=== PATIENT | female | born 1955 | race Caucasian/White ===

== ENCOUNTER → 2019-04-04 | Outpatient (CLI) | payer OTHER ==
--- NOTE | 2019-04-04 08:48 | US ---
EXAMINATION TYPE: US carotid duplex BILAT DATE OF EXAM: 04/04/2019 COMPARISON: NONE CLINICAL HISTORY: I25.10 Coronary arterial sclerosis. EXAM MEASUREMENTS: RIGHT: Peak Systolic Velocity (PSV) cm/sec ----- Right CCA: 119.0 ----- Right ICA: 67.4 ----- Right ECA: 232.0 ICA/CCA ratio: 0.56 RIGHT: End Diastole cm/sec ----- Right CCA: 20.4 ----- Right ICA: 13.4 ----- Right ECA: 21.6 LEFT: Peak Systolic Velocity (PSV) cm/sec ----- Left CCA: 114.0 ----- Left ICA: 85.4 ----- Left ECA: 121. ICA/CCA ratio: 0.74 LEFT: End Diastole cm/sec ----- Left CCA: 22.2 ----- Left ICA: 26.4 ----- Left ECA: 11.6 VERTEBRALS (direction of flow): Right Vertebral: Antegrade Left Vertebral: Antegrade Rhythm: Normal There is mild peripheral plaque bilateral carotid bulb level. Velocity measurements and ratios in vis ualized portion of both internal carotid arteries is within normal limits. IMPRESSION: No hemodynamically significant stenosis involving either internal carotid artery. Criteria for Assigning % of Stenosis / Diameter reduction (Estimation based on the indirect measurements of the internal carotid artery velocities (ICA PSV). 1. Normal (no stenosis)=ICA PSV < 125 cm/s: ratio < 2.0: ICA EDV<40 cm/s. 2. Less than 50% stenosis=ICA PSV < 125 cm/s: ratio < 2.0: ICA EDV<40 cm/s. 3. 50 to 69% stenosis=ICA PSV of 125 to 230 cm/s: ration 2.0 ? 4.0: ICA EDV 40-100 cm/s. 4. Greater than 70% stenosis to near occlusion= ICA PSV > 230 cm/s: ratio > 4.0: ICA EDV > 100 cm/s. 5. Near occlusion= ICA PSV velocities may be low or undetectable: variable ratio and ICA EDV. 6. Total occlusion=unable to detect flow.
== END | disposition home or self-care (01) ==
LOC: RADUSWWP 08:01
PROVIDERS: ATTEND Family Medicine
DX: I25.10 Atherosclerotic heart disease of native coronary artery without angina pectoris (principal)
CPT/HCPCS: 93880

== ENCOUNTER → 2022-01-29 | Outpatient (CLI) | payer MEDICARE ==
--- NOTE | 2022-01-29 08:43 | US ---
EXAMINATION TYPE: US duplex aorta DATE OF EXAM: 01/29/2022 COMPARISON: NONE CLINICAL HISTORY: 66-year-old female I25.10 Atherosclerosis, Z13.6AAA screening. Epigastric pain, h/o ID and bypass surgery 17yrs ago, no family history of AAA TECHNIQUE: Multiple sonographic images of the abdominal aorta are obtained. FINDINGS: EXAM MEASUREMENTS: Abdominal Aorta: Proximal: 2.3 x 1.8cm Mid: 1.3 x 1.8cm Distal: 1.2 x 1.3cm Bifurcation: Rt = 0.7cm Lt = 0.6cm Wreath Maker notes: Appearance of atherosclerotic changes, otherwise normal appearing caliber IMPRESSION: Mild to moderate atherosclerotic irregularity throughout. No sonographic evidence for AAA.
--- NOTE | 2022-01-29 12:29 | ECHOF ---
Referral Reason:I25.10 MEASUREMENTS -------- HEIGHT: 149.9 cm WEIGHT: 61.2 kg BP: 148/70 RVIDd: 2.8 cm (< 3.3) IVSd: 1.0 cm (0.6 - 1.1) LVIDd: 3.1 cm (3.9 - 5.3) LVPWd: 0.9 cm (0.6 - 1.1) IVSs: 1.5 cm LVIDs: 2.1 cm LVPWs: 1.5 cm LA Diam: 3.2 cm (2.7 - 3.8) LAESV Index (A-L): 18.81 ml/m Ao Diam: 2.6 cm (2.0 - 3.7) AV Cusp: 1.8 cm (1.5 - 2.6) MV EXCURSION: 15.792 mm (> 18.000) MV EF SLOPE: 70 mm/s (70 - 150) EPSS: 0.4 cm MV E Gonzales: 1.03 m/s MV DecT: 279 ms MV A Gonzales: 0.90 m/s MV E/A Ratio: 1.14 RAP: 5.00 mmHg RVSP: 29.66 mmHg FINDINGS -------- Sinus rhythm. This was a technically good study. The left ventricular size is normal. Left ventricular wall thickness is normal. Overall left vent ricular systolic function is normal with, an EF between 60 - 65 %. The right ventricle is normal in size. Normal LA size by volume 22+/-6 ml/m2. The right atrium is normal in size. Aneurysmal Interatrial septum. The aortic valve is trileaflet, and appears structurally normal. No aortic stenosis or regurgitation. The mitral valve leaflets are mildly thickened. There is trace mitral regurgitation. Mild tricuspid regurgitation present. Right ventricular systolic pressure is normal at < 35 mmHg. Trace/mild (physiologic) pulmonic regurgitation. The aortic root size is normal. Normal inferior vena cava with normal inspiratory collapse consistent with estimated right atrial pre ssure of 5 mmHg. There is no pericardial effusion. CONCLUSIONS -------- 1. The left ventricular size is normal. 2. Left ventricular wall thickness is normal. 3. Overall left ventricular systolic function is normal with, an EF between 60 - 65 %. 4. Aneurysmal Interatrial septum. 5. The mitral valve leaflets are mildly thickened. 6. There is trace mitral regurgitation. 7. Mild tricuspid regurgitation present. 8. Trace/mild (physiologic) pulmonic regurgitation. 9. The aortic root size is normal. 10. There is no pericardial effusion. TIPPLE TENDER: Janell Larios RDCS
== END | disposition home or self-care (01) ==
LOC: RADUSWWP 06:48
PROVIDERS: ATTEND Family Medicine
DX: Z13.6 Encounter for screening for cardiovascular disorders (principal); I25.10 Atherosclerotic heart disease of native coronary artery without angina pectoris; I08.8 Other rheumatic multiple valve diseases
CPT/HCPCS: 93306; 93979

== ENCOUNTER 2023-01-25 15:20 | Inpatient (IN) | payer MEDICARE ==
[2023-01-25] MEDS ORDERED: NITROGLYCERIN OINT 1 INCH/GM PACKET TOPICAL STA (15:27)
[2023-01-25] MEDS ORDERED: HEPARIN SODIUM 1,000 UN/ML (10ML VL) IV PRN (15:27)
[2023-01-25] MEDS ORDERED: HEPARIN SODIUM 1,000 UN/ML (10ML VL) IV ONE (15:27)
[2023-01-25] MEDS ORDERED: HEPARIN SOD,PORK IN 0.45% NACL 25,000 UNIT in 0.45% NACL 1 250ML.BAG IV SCH (15:30)
--- NOTE | 2023-01-25 15:33 | ED ---
Chest Pain HPI - General Chief Complaint: Chest Pain Stated Complaint: Chest Pressure Time Seen by Provider: 01/25/23 15:20 Source: patient, RN notes reviewed Mode of arrival: EMS Limitations: no limitations - History of Present Illness Initial Comments: 67-year-old female with a history of hypertension also history of 6 way coronary artery bypass 17 years ago who presents by EMS from her doctor's office with complaints of chest pain is started 3 AM this morning. His been on and off but getting somewhat worse throughout the day she was given aspirin as well as nitroglycerin which brought the pain level down from a 5/10 with 3/10 she points were midsternal area there is no radiation no nausea vomiting or other symptoms at this time. MD Complaint: chest pain - Related Data Home Medications Medication Instructions Recorded Confirmed Aspirin EC [Ecotrin Low Dose] 81 mg PO DAILY 01/25/23 01/25/23 Metoprolol Succinate [Metoprolol 25 mg PO HS 01/25/23 01/25/23 Succinate ER] Pravastatin Sodium [Pravachol] 20 mg PO DAILY 01/25/23 01/25/23 amLODIPine [Norvasc] 5 mg PO DAILY 01/25/23 01/25/23 lisinopriL [Zestril] 5 mg PO DAILY 01/25/23 01/25/23 Allergies Allergy/AdvReac Type Severity Reaction Status Date / Time morphine AdvReac Nausea & Verified 01/25/23 17:44 Vomiting & Diarrhea Review of Systems ROS Statement: Those systems with pertinent positive or pertinent negative responses have been documented in the HPI. ROS Other: All systems not noted in ROS Statement are negative. EKG Findings - EKG Results: EKG: interpreted by ERMD (EKG interpreted by me sinus rhythm a 93. Interval 146 QRS ratio 89 QT/QTC 353/[address] configuration this is compared with EKG from the doctor's office earlier today) Past Medical History Past Medical History: GERD/Reflux, Hypertension History of Any Multi-Drug Resistant Organisms: None Reported Past Surgical History: Heart Catheterization Past Psychological History: No Psychological Hx Reported Smoking Status: Former smoker Past Alcohol Use History: None Reported Past Drug Use History: None Reported General Exam - General Exam Comments Initial Comments: This is a well-developed well-nourished awake alert oriented 4 female Limitations: no limitations General appearance: alert, in no apparent distress Head exam: Present: atraumatic, normocephalic, normal inspection Eye exam: Present: normal appearance, PERRL, EOMI. Absent: scleral icterus, conjunctival injection, periorbital swelling ENT exam: Present: normal exam, mucous membranes moist Neck exam: Present: normal inspection, full ROM, other (No stridor JVD or bruits). Absent: tenderness, meningismus, lymphadenopathy Respiratory exam: Present: normal lung sounds bilaterally. Absent: respiratory distress, wheezes, rales, rhonchi, stridor, chest wall tenderness Cardiovascular Exam: Present: regular rate, normal rhythm, normal heart sounds. Absent: systolic murmur, diastolic murmur, rubs, gallop, clicks GI/Abdominal exam: Present: soft, normal bowel sounds. Absent: distended, tenderness, guarding, rebound, rigid Extremities exam: Present: normal inspection, full ROM, normal capillary refill. Absent: tenderness, pedal edema, joint swelling, calf tenderness Back exam: Present: normal inspection Neurological exam: Present: alert, oriented X3, CN II-XII intact Psychiatric exam: Present: normal affect, normal mood Skin exam: Present: warm, dry, intact, normal color. Absent: rash Course Vital Signs 01/25/23 01/25/23 15:23 17:01 Temperature 97.7 F Pulse Rate 96 80 Respiratory 18 18 Rate Blood Pressure 160/81 172/87 O2 Sat by Pulse 95 97 Oximetry Chest Pain MDM - MDM I did discuss findings with the patient also with Dr. Basurto who did come the emergency department see the patient. Patient be admitted the presentation appears be consistent with unstable angina the chest painWas pt. sent in by a medical professional or institution (, PA, FURNITURE BUILDER, urgent care, hospital, or retirement...) When possible be specific @ -No Did you speak to anyone other than the patient for history (EMS, parent, family, police, friend...)? What history was obtained from this source @ -EMS personnel Did you review nursing and triage notes (agree or disagree)? Why? @ -I reviewed and agree with nursing and triage notes Were old charts reviewed (outside hosp., previous admission, EMS record, old EKG, old radiological studies, urgent care reports/EKG's, retirement records)? Report findings @ -From the office old charts were reviewed Differential Diagnosis (chest pain, altered mental status, abdominal pain women, abdominal pain men, vaginal bleeding, weakness, fever, dyspnea, syncope, headache, dizziness, GI bleed, back pain, seizure, CVA, palpatations, mental health, musculoskeletal)? @ -Test pain EKG interpreted by me (3pts min.). @ -As above X-rays interpreted by me (1pt min.). @ -As above CT interpreted by me (1pt min.). @ -None done U/S interpreted by me (1pt. min.). @ -None done What testing was considered but not performed or refused? (CT, X-rays, U/S, labs)? Why? @ -None What meds were considered but not given or refused? Why? @ -None Did you discuss the management of the patient with other professionals (professionals i.e. , PA, FURNITURE BUILDER, lab, RT, psych nurse, social services coordinator, gill tender, teacher, flight radio officer, upper caser)? Give summary @ -Dr. Basurto Was smoking cessation discussed for >3mins.? @ -No Was critical care preformed (if so, how long)? @ -31 minutes Were there social determinants of health that impacted care today? How? (Homelessness, low income, unemployed, alcoholism, drug addiction, transportation, low edu. Level, literacy, decrease access to med. care, intermediate, rehab)? @ -No Was there de-escalation of care discussed even if they declined (Discuss DNR or withdrawal of care, Hospice)? DNR status @ -No What co-morbidities impacted this encounter? (DM, HTN, Smoking, COPD, CAD, Cancer, CVA, ARF, Chemo, Hep., AIDS, mental health diagnosis, sleep apnea, morbid obesity)? @ -Coronary artery disease with bypass, hypertension, former smoker Was patient admitted / discharged? Hospital course, mention meds given and route, prescriptions, significant lab abnormalities, going to OR and other pertinent info. @ -Admitted to the hospital for further evaluation and cardiology consultation Undiagnosed new problem with uncertain prognosis? @ -No Drug Therapy requiring intensive monitoring for toxicity (Heparin, Nitro, Insulin, Cardizem)? @ -No Were any procedures done? @ -No Diagnosis/symptom? @ -Acute chest pain, unstable angina Acute, or Chronic, or Acute on Chronic? @ -2] Uncomplicated (without systemic symptoms) or Complicated (systemic symptoms)? @ -default Side effects of treatment? @ -No Exacerbation, Progression, or Severe Exacerbation? @ -No Poses a threat to life or bodily function? How? (Chest pain, [place], [place], pneumonia, PE, COPD, DKA, ARF, appy, cholecystitis, CVA, Diverticulitis, Homicidal, Suicidal, threat to staff... and all critical care pts) @ -Chest pain Critical Care Time Critical Care Time: Yes Total Critical Care Time: 31 Disposition Clinical Impression: Unstable angina pectoris, Acute chest pain Disposition: ADMITTED IP TO THIS HOSP Condition: Stable Referrals: Farhan Wyatt MD [Primary Care Provider] - 1-2 days Decision Date: 01/25/23 Decision Time: 19:00
[2023-01-25 15:47] LABS: Basophils % (A) 0 %; Eosinophils # (A) 0.2 k/uL (0-0.7); Eosinophils % (A) 1 %; Lymphocytes # (A) 1.6 k/uL (1.0-4.8); Lymphocytes % (A) 14 %; MCHC 34.8 g/dL (31.0-37.0); Mean Platelet Volume 7.8; Monocytes # (A) 0.6 k/uL (0-1.0); Monocytes % (A) 5 %; Neutrophils # (A) 9.3 k/uL (1.3-7.7); Neutrophils % (A) 79 %; Platelet Count 276 k/uL (150-450); RBC 4.83 m/uL (3.80-5.40); RDW 12.1 % (11.5-15.5); WBC 11.9 k/uL (3.8-10.6)
[2023-01-25 16:06] LABS: INR 0.9 (<1.2); Partial Thromboplastin Time 23.4 sec (22.0-30.0)
[2023-01-25 16:10] LABS: ALT 36 U/L (4-34); African American GFR (CKD) >90 (>60 ml/min/1.73 sqM); Albumin 4.6 g/dL (3.5-5.0); Anion Gap 11 mmol/L; Blood Urea Nitrogen 13 mg/dL (7-17); Calcium 9.3 mg/dL (8.4-10.2); Carbon Dioxide 23 mmol/L (22-30); Chloride 104 mmol/L (98-107); Glucose 133 mg/dL (74-99); Lipase 113 U/L (23-300); Non-African American GFR(CKD) >90 (>60 ml/min/1.73 sqM); Sodium 138 mmol/L (137-145); Total Bilirubin 0.8 mg/dL (0.2-1.3); Total Protein 8.5 g/dL (6.3-8.2)
[2023-01-25 16:14] LABS: AST 35 U/L (14-36); Alkaline Phosphatase 68 U/L (38-126); Magnesium 1.9 mg/dL (1.6-2.3); Potassium 4.2 mmol/L (3.5-5.1)
--- NOTE | 2023-01-25 17:06 | XR ---
EXAMINATION TYPE: XR chest 2V DATE OF EXAM: 01/25/2023 COMPARISON: None INDICATION: Chest pain TECHNIQUE: Frontal and lateral views of the chest are obtained. FINDINGS: The heart size is normal. The pulmonary vasculature is normal. The lungs are clear. IMPRESSION: 1. No acute pulmonary process.
[2023-01-25] MEDS ORDERED: HYDROmorphone 1 MG/ML 1 ML SYRINGE IVP STA (17:52)
[2023-01-25] MEDS ORDERED: ONDANSETRON 4 MG/2 ML VIAL IVP STA (18:13)
[2023-01-25] MEDS ORDERED: NITROGLYCERIN SL TABS 0.4 MG TAB SUBLINGUAL PRN (19:39)
[2023-01-25] MEDS: METOPROLOL SUCCINATE (ER) 25 MG TAB.ER.24H PO SCH (20:33)
[2023-01-25] MEDS: SODIUM CHLORIDE 0.9% 1,000 ML IV SCH (20:35)
[2023-01-25] MEDS ORDERED: METOCLOPRAMIDE 5 MG/ML 2 ML VIAL IVP STA (22:17)
[2023-01-25] MEDS ORDERED: ATORVASTATIN 80 MG TAB PO STA (23:45)
--- NOTE | 2023-01-25 23:49 | P.HPIM ---
History of Present Illness H&P Date: 01/25/23 The patient is a 67-year-old female with a PMH of CAD status post CABG 17 years ago, hypertension, and hyperlipidemia who presents to the emergency room with complaints of chest discomfort. The patient reports that she woke up this morning at around 3 AM with an aching substernal discomfort. She initially attributed the pain to heartburn, however it worsened throughout the day, increasing to a 7 out of 10 in intensity, nonpleuritic, nonradiating, with associated nausea and dizziness. At time of interview, she reports that her pain had resolved after receiving nitroglycerin. She denied experiencing shortness of breath or palpitations. Also denied fever, chills, cough. He denied lower extremity swelling or pain. EKG in the emergency room revealed sinus rhythm at [address]/T-wave changes noted as reviewed by me. Chest x-ray was unremarkable. Lab evaluation was remarkable for leukocytosis of 11.9, d-dimer 0.34, troponin less than 0.012, ALT 36, and proBNP 62. ED documentation reviewed and case discussed with ED provider. [] Review of systems: Pertinent positives and negatives as discussed in HPI, a complete review of systems was performed and all other systems are negative. Physical examination: Vital signs reviewed General: non toxic, no distress, appears at stated age, overweight Derm: no unusual rashes/lesions, warm Head: atraumatic, normocephalic, symmetric Eyes: EOMI, no lid lag, anicteric sclera, pupils equal round reactive to light ENT: Nose and ears atraumatic Neck: No cervical lymphadenopathy, trachea midline, supple Mouth: no lip lesion, mucus membranes moist Cardiovascular: S1S2 reg, no murmur, positive dorsalis pedis pulse bilateral, no edema Lungs: CTA bilateral, no rhonchi, no rales, no accessory muscle use Abdominal: soft, nontender to palpation, no guarding Ext: muscle strength 5 out of 5 in all 4 extremities grossly, no gross muscle atrophy, no contractures, Neuro: CN II-XI grossly intact, no gross focal neuro deficits Psych: Alert, oriented, appropriate affect Assessment: Unstable angina Leukocytosis Chronic conditions: Hypertension, hyperlipidemia Imaging: EKG in the emergency room revealed sinus rhythm at [address]/T-wave changes noted as reviewed by me. Chest x-ray was unremarkable. Data Review: Lab evaluation was remarkable for leukocytosis of 11.9, d-dimer 0.34, troponin less than 0.012, ALT 36, and proBNP 62. Plan: Continue with heparin infusion with PTT monitoring Continue with aspirin 325 by mouth daily and Lipitor 80 mg by mouth daily Nitropaste Cardiology consulted Cardiac monitoring Trend troponin Leukocytosis likely secondary to acute stressor with no signs of active i nfection at this time Continue with home medications: -Norvasc 5 mg by mouth daily -Lisinopril 5 mg by mouth daily -Toprol 25 mg by mouth daily at bedtime DVT prophylaxis: Heparin infusion The patient is admitted with an anticipated greater than 2 midnight stay for evaluation of unstable angina CODE STATUS: Full Code Discussed with: Patient Anticipated discharge place: Home Past Medical History Past Medical History: GERD/Reflux, Hypertension History of Any Multi-Drug Resistant Organisms: None Reported Past Surgical History: Coronary Bypass/CABG, Heart Catheterization Additional Past Surgical History / Comment(s): CABG X 6 Past Anesthesia/Blood Transfusion Reactions: No Reported Reaction Past Psychological History: No Psychological Hx Reported Smoking Status: Former smoker Past Alcohol Use History: None Reported Past Drug Use History: None Reported - Past Family History Mother Family Medical History: COPD Medications and Allergies Home Medications Medication Instructions Recorded Confirmed Type Aspirin EC [Ecotrin Low Dose] 81 mg PO DAILY 01/25/23 01/25/23 History Metoprolol Succinate [Metoprolol 25 mg PO HS 01/25/23 01/25/23 History Succinate ER] Pravastatin Sodium [Pravachol] 20 mg PO DAILY 01/25/23 01/25/23 History amLODIPine [Norvasc] 5 mg PO DAILY 01/25/23 01/25/23 History lisinopriL [Zestril] 5 mg PO DAILY 01/25/23 01/25/23 History Allergies Allergy/AdvReac Type Severity Reaction Status Date / Time morphine AdvReac Nausea & Verified 01/25/23 17:44 Vomiting & Diarrhea Physical Exam Vitals: Vital Signs Temp Pulse Pulse Resp BP BP Pulse Ox 01/25/23 20:54 85 16 01/25/23 20:32 98 F 85 16 147/74 96 01/25/23 20:02 98.2 F 92 18 143/78 93 L 01/25/23 19:59 98.2 F 93 18 143/78 94 L 01/25/23 17:01 80 18 172/87 97 01/25/23 15:23 97.7 F 96 18 160/81 95 Intake and Output 01/25/23 01/25/23 01/26/23 14:59 22:59 06:59 Intake Total 100 Balance 100 Intake: Oral 100 Other: Voiding Method Toilet Weight 63.957 kg Results CBC & Chem 7: 01/25/23 15:34 01/25/23 15:33 Labs: Abnormal Lab Results - Last 24 Hours (Table) 01/25/23 01/25/23 01/25/23 Range/Units 15:33 15:34 22:48 WBC 11.9 H (3.8-10.6) k/uL Neutrophils # 9.3 H (1.3-7.7) k/uL APTT 33.9 H (22.0-30.0) sec Glucose 133 H (74-99) mg/dL ALT 36 H (4-34) U/L Total Protein 8.5 H (6.3-8.2) g/dL Thrombosis Risk Factor Assmnt - Choose All That Apply Each Factor Represents 1 point: Obesity (BMI >25) Each Risk Factor Represents 2 Points: Age 61-74 years Thrombosis Risk Factor Assessment Total Risk Factor Score: 3 Thrombosis Risk Factor Assessment Level: Moderate Risk
[2023-01-26] MEDS: SODIUM CHLORIDE 0.9% 1,000 ML IV SCH ×2 (05:20→16:36)
[2023-01-26 08:07] LABS: HCT 42.2 % (34.0-46.0); HGB 14.3 gm/dL (11.4-16.0); MCH 31.2 pg (25.0-35.0); MCV 91.8 fL (80.0-100.0); Mean Platelet Volume 8.5; Platelet Count 295 k/uL (150-450); RBC 4.59 m/uL (3.80-5.40); RDW 12.3 % (11.5-15.5); WBC 13.6 k/uL (3.8-10.6)
[2023-01-26] MEDS ORDERED: ASPIRIN 325 MG TAB PO SCH (09:00)
[2023-01-26] MEDS ORDERED: PRAVASTATIN SODIUM 20 MG TAB PO SCH (09:00)
[2023-01-26] MEDS: amLODIPine 5 MG TAB PO SCH (09:26)
[2023-01-26] MEDS: ASPIRIN 81 MG PO SCH (09:26)
[2023-01-26] MEDS: lisinopriL 5 MG TAB PO SCH (09:26)
--- NOTE | 2023-01-26 09:42 | P.CRDCN ---
History of Present Illness Consult date: 01/26/23 History of present illness: HISTORY OF PRESENT ILLNESS: This is a 67-year-old female with a past medical history significant for coronary artery disease with previous CABG, hypertension, and hyperlipidemia. Patient follows in the office with Dr. Silverio. We have been asked to see the patient in consultation for chest pain. Patient examined at the bedside. She began having pressure in the middle of her chest yesterday. She initially thought it was heartburn as she had ate tacos which sometimes causes her to have heartburn. She states that she took Pepcid without any relief. She denied any radiation of the pain. Denied any shortness of breath. She states that she came to the ER for further evaluation. She received Dilaudid when she came to the ER which took away her pain. She states she's had no further episodes of chest pain since that time. Patient's vitals remain stable. * EKG reveals sinus mechanism with no signs of acute ischemia * Chest xray negative for acute process * Laboratory data: WBC 13.6. Hemoglobin 14.3. Platelet count 295. Sodium 138. Potassium 4.2. BUN 13. Creatinine 0.55. D-dimer 0.34. Troponin negative 3 * Current home cardiac medications include Pravachol 20 mg daily, lisinopril 5 mg daily, amlodipine 5 mg daily, aspirin 81 mg daily, and metoprolol succinate 25 mg at night * Most recent echocardiogram obtained in January 2022 revealed ejection fraction 60%, minimal mitral and tricuspid insufficiency without pulmonary hypertension. * Patient underwent Cardiolite stress testing in April 2022. Patient walked for 7 minutes. No ischemia noted. REVIEW OF SYSTEMS: At the time of my exam: CONSTITUTIONAL: Denies fever or chills. HEENT: Denies blurred vision, vision changes, or eye pain. Denies hemoptysis CARDIOVASCULAR: Denies chest pain. Denies orthopnea. Denies PND. Denies palpitations RESPIRATORY: Denies shortness of breath. GASTROINTESTINAL: Denies abdominal pain. Denies nausea or vomiting. HEMATOLOGIC: Denies bleeding disorders. GENITOURINARY: Denies any blood in urine. SKIN: Denies pruitis. Denies rash. PHYSICAL EXAM: VITAL SIGNS: Reviewed. GENERAL: Well-developed in no acute distress. HEENT: Head is normocephalic. Pupils are equal, round. Sclerae anicteric. Mucous membranes of the mouth are moist. Neck supple. No JVD or thyromegaly LUNGS: Respirations even and unlabored. Lungs essentially clear to auscultation bilaterally. HEART: Regular rate and rhythm. S1 and S2 heard. ABDOMEN: Soft. Nondistended. Nontender. EXTREMITIES: Normal range of motion. No clubbing or cyanosis. Peripheral pulses intact. No lower extremity edema NEUROLOGIC: Awake and alert. Oriented x 3. ASSESSMENT: Chest pain, troponins negative 3 Coronary artery disease with history of CABG Hypertension Hyperlipidemia History of GERD PLAN: An acute coronary event has been ruled out Discontinue IV heparin Resume home cardiac medications Obtain 2-D echo to assess cardiac structure and function Patient to undergo stress echocardiogram today If negative, she may be discharged home from a cardiac standpoint and follow-up with Dr. Silverio Nurse practitioner note has been reviewed by physician. Signing provider agrees with the documented findings, assessment, and plan of care. Past Medical History Past Medical History: GERD/Reflux, Hypertension History of Any Multi-Drug Resistant Organisms: None Reported Past Surgical History: Coronary Bypass/CABG, Heart Catheterization Additional Past Surgical History / Comment(s): CABG X 6 Past Anesthesia/Blood Transfusion Reactions: No Reported Reaction Past Psychological History: No Psychological Hx Reported Smoking Status: Former smoker Past Alcohol Use History: None Reported Past Drug Use History: None Reported - Past Family History Mother Family Medical History: COPD Medications and Allergies Home Medications Medication Instructions Recorded Confirmed Type Aspirin EC [Ecotrin Low Dose] 81 mg PO DAILY 01/25/23 01/25/23 History Metoprolol Succinate [Metoprolol 25 mg PO HS 01/25/23 01/25/23 History Succinate ER] Pravastatin Sodium [Pravachol] 20 mg PO DAILY 01/25/23 01/25/23 History amLODIPine [Norvasc] 5 mg PO DAILY 01/25/23 01/25/23 History lisinopriL [Zestril] 5 mg PO DAILY 01/25/23 01/25/23 History Allergies Allergy/AdvReac Type Severity Reaction Status Date / Time morphine AdvReac Nausea & Verified 01/25/23 17:44 Vomiting & Diarrhea Physical Exam Vitals: Vital Signs Temp Pulse Pulse Resp BP BP Pulse Ox 01/26/23 08:00 96 17 01/26/23 06:51 99.4 F 96 17 149/78 95 01/26/23 02:20 98.4 F 86 17 159/81 95 01/26/23 02:00 16 01/25/23 20:54 85 16 01/25/23 20:32 98 F 85 16 147/74 96 01/25/23 20:02 98.2 F 92 18 143/78 93 L 01/25/23 19:59 98.2 F 93 18 143/78 94 L 01/25/23 17:01 80 18 172/87 97 01/25/23 15:23 97.7 F 96 18 160/81 95 Intake and Output 01/25/23 01/26/23 01/26/23 22:59 06:59 14:59 Intake Total 100 114.551 Balance 100 114.551 Intake: Intake, IV Titration 114.551 Amount Heparin Sod,Pork in 0.45% 114.551 NaCl 25,000 unit In 0.45 % NaCl 1 250ml.bag @ 12 UNITS/KG/HR 7.675 mls/hr IV .Q24H [facility] Rx#: [id number] Oral 100 Other: Voiding Method Toilet Toilet Toilet # Voids 2 Weight 63.957 kg Results 01/26/23 04:14 01/25/23 15:33 Cardiac Enzymes 01/25/23 01/25/23 01/25/23 Range/Units 15:33 15:33 20:09 AST 35 (14-36) U/L Troponin I <0.012 <0.012 (0.000-0.034) ng/mL 01/25/23 Range/Units 22:48 AST (14-36) U/L Troponin I <0.012 (0.000-0.034) ng/mL Coagulation 01/25/23 01/25/23 01/26/23 Range/Units 15:34 22:48 04:18 PT 10.0 (9.0-12.0) sec APTT 23.4 33.9 H 65.8 H (22.0-30.0) sec CBC 01/25/23 01/26/23 Range/Units 15:34 04:14 WBC 11.9 H 13.6 H (3.8-10.6) k/uL RBC 4.83 4.59 (3.80-5.40) m/uL Hgb 15.0 14.3 (11.4-16.0) gm/dL Hct 43.0 42.2 (34.0-46.0) % Plt Count 276 295 (150-450) k/uL Comprehensive Metabolic Panel 01/25/23 Range/Units 15:33 Sodium 138 (137-145) mmol/L Potassium 4.2 (3.5-5.1) mmol/L Chloride 104 (98-107) mmol/L Carbon Dioxide 23 (22-30) mmol/L BUN 13 (7-17) mg/dL Creatinine 0.55 (0.52-1.04) mg/dL Glucose 133 H (74-99) mg/dL Calcium 9.3 (8.4-10.2) mg/dL AST 35 (14-36) U/L ALT 36 H (4-34) U/L Alkaline Phosphatase 68 (38-126) U/L Total Protein 8.5 H (6.3-8.2) g/dL Albumin 4.6 (3.5-5.0) g/dL Current Medications Generic Name Dose Route Start Last Admin Trade Name Freq PRN Reason Stop Dose Admin Amlodipine Besylate 5 mg 01/26/23 09:00 01/26/23 09:26 Amlodipine 5 Mg Tab PO 5 mg DAILY HELADIO Administration Aspirin 81 mg 01/26/23 09:00 01/26/23 09:26 Aspirin 81 Mg PO 81 mg DAILY HELADIO Administration Heparin Sodium (Porcine) 0 unit 01/25/23 15:27 01/25/23 23:45 Heparin Sodium 1,000 Un/Ml (10ml Vl) IV 3,197.85 unit Q6HR PRN Administration Low PTT Protocol Sodium Chloride 1,000 mls @ 100 mls/hr 01/25/23 19:45 01/26/23 05:20 Saline 0.9% IV 100 mls/hr .Q10H HELADIO Administration Lisinopril 5 mg 01/26/23 09:00 01/26/23 09:26 Lisinopril 5 Mg Tab PO 5 mg DAILY HELADIO Administration Metoprolol Succinate 25 mg 01/25/23 21:00 01/25/23 20:33 Metoprolol Succinate (Er) 25 Mg Tab.Er.24h PO 25 mg HS HELADIO Administration Nitroglycerin 0.4 mg 01/25/23 19:39 Nitroglycerin Sl Tabs 0.4 Mg Tab SUBLINGUAL Q5M PRN Chest Pain Pravastatin Sodium 20 mg 01/26/23 21:00 Pravastatin Sodium 20 Mg Tab PO HS [facility] Intake and Output 01/25/23 01/26/23 01/26/23 22:59 06:59 14:59 Intake Total 100 114.551 Balance 100 114.551 Intake: Intake, IV Titration 114.551 Amount Heparin Sod,Pork in 0.45% 114.551 NaCl 25,000 unit In 0.45 % NaCl 1 250ml.bag @ 12 UNITS/KG/HR 7.675 mls/hr IV .Q24H [facility] Rx#: [id number] Oral 100 Other: Voiding Method Toilet Toilet Toilet # Voids 2 Weight 63.957 kg 01/26/23 04:14 01/25/23 15:33
[2023-01-26 12:44] LABS: Chol/HDL Ratio 3.47 Ratio; LDL Cholesterol,Calculated 89.1 mg/dL (0.0-131.0)
[2023-01-26] MEDS: ACETAMINOPHEN TAB 325 MG TAB PO PRN (14:11)
[2023-01-26] MEDS ORDERED: MAG HYDROX/AL HYDROX/SIMETH 30 ML, HYOSCYAMINE ELIXIR 10 ML, LIDOCAINE VISCOUS 2% 10 ML PO ONE ×3 (15:31)
--- NOTE | 2023-01-26 16:06 | XR ---
EXAMINATION TYPE: XR chest 1V portable DATE OF EXAM: 01/26/2023 HISTORY: Shortness of breath. COMPARISON: 01/25/2023 TECHNIQUE: Single view of the chest is submitted. FINDINGS: Demonstrated are scattered senescent parenchymal change. There is no evidence for focal infiltrate. The heart is stable. Hilar and mediastinal structures are within normal limits. Degenerative changes are seen of the dorsal spine. IMPRESSION: 1. Chronic changes without evidence for acute pulmonary disease.
--- NOTE | 2023-01-26 16:50 | P.PN ---
Subjective Progress Note Date: 01/26/23 (Patient seen at 0815 AM) Patient is a 67-year-old female with a past medical history of coronary artery disease status post reported 6 vessel CABG 17 years ago, hypertension, and dyslipidemia who presented to the ER with complaints of chest pain. In the emergency department she underwent an extensive evaluation. Initial EKG showed no significant ST-T wave changes. Chest x-ray was unremarkable. Laboratory analysis was remarkable for a leukocytosis of 19.9, d-dimer 0.34 and troponin of less than 0.012. She was given an aspirin, nitroglycerin, and a heparin drip was started. She was admitted to cardiac observation. She was seen by cardiology the next morning and a stress echo was ordered. Patient seen and examined at bedside. Currently chest pain-free. She states that her chest pain awoke her from sleep and she describes it as a burning/gnawing sensation in her lower chest/upper abdomen. It was not associated with diaphoresis or shortness of breath. She took a Pepcid and when it did not resolve she proceeded to the hospital. She reports that she just recently started seeing Dr. Silverio again, she had not seen a wheel braider for 6 years before that. Vital signs reviewed General: nontoxic, no distress, appears at stated age Cardiovascular: S1S2 reg, no murmur, positive posterior tibial pulse bilateral, Lungs: CTA bilateral, no rhonchi, no rales , no accessory muscle use Abdominal: soft, nontender to palpation, no guarding, no appreciable organomegaly Ext: no gross muscle atrophy, no edema, no contractures Neuro: CN II-XI grossly intact, no focal neuro deficits Psych: Alert, oriented, appropriate affect Assessment: Chest pain-cardiac versus GI etiology Leukocytosis History of coronary artery disease status post coronary artery bypass grafting Hypertension Dyslipidemia Data Review: Vital signs reviewed from this morning and temperature 99.4, O2 sat 95% on room air, pulse 96, respirations 17, blood pressure 149/78 White blood cell count 13.6, PTT 33.9, second and third troponin less than 0.012, cholesterol profile reviewed with HDL 47, LDL 89, and total cholesterol 164 Plan: -Case discussed with cardiology nurse practitioner. Patient will undergo stress echo. -CMP added to blood work in lab due to increasing leukocytosis -Patient began having some bilateral rib pain after her stress echo. EKG was obtained and reviewed by myself which revealed sinus rhythm with no significant ST-T wave changes. Repeat chest x-ray showed no acute process. Repeat stat CBC and CMP currently pending. Gallbladder ultrasound ordered. -We will try GI cocktail for pain relief -Continue with aspirin 81 mg daily, Pravachol 20 mg at night, metoprolol 25 mg at night, and lisinopril 5 mg daily -Norvasc 5 mg daily -Added Dilaudid 1 mg every 4 hours as needed for pain and tramadol 50 mg 4 times daily as needed for moderate pain. This dictation was prepared using [employer] voice recognition software. Though every attempt is made to correct errors during during dictation some may still exist. Objective - Vital Signs Vital signs: Vital Signs Temp 98.9 F 01/26/23 13:27 Pulse 109 H 01/26/23 15:10 Resp 18 01/26/23 15:10 BP 162/76 01/26/23 15:10 Pulse Ox 97 01/26/23 15:10 FiO2 Intake & Output 01/25/23 01/26/23 01/26/23 18:59 06:59 18:59 Intake Total 214.551 Balance 214.551 Weight 63.957 kg 63.957 kg Intake: Intake, IV Titration 114.551 Amount Heparin Sod,Pork in 0.45% 114.551 NaCl 25,000 unit In 0.45 % NaCl 1 250ml.bag @ 12 UNITS/KG/HR 7.675 mls/hr IV .Q24H [facility] Rx#: [id number] Oral 100 Other: Voiding Method Toilet Toilet # Voids 2 3 - Labs CBC & Chem 7: 01/26/23 04:14 01/25/23 15:33 Labs: Abnormal Lab Results - Last 24 Hours (Table) 01/25/23 01/26/23 01/26/23 Range/Units 22:48 04:14 04:18 WBC 13.6 H (3.8-10.6) k/uL APTT 33.9 H 65.8 H (22.0-30.0) sec
[2023-01-26 16:56] LABS: HCT 43.3 % (34.0-46.0); HGB 14.9 gm/dL (11.4-16.0); MCH 31.1 pg (25.0-35.0); MCHC 34.3 g/dL (31.0-37.0); MCV 90.6 fL (80.0-100.0); Mean Platelet Volume 7.4; Platelet Count 280 k/uL (150-450); RBC 4.77 m/uL (3.80-5.40); RDW 12.3 % (11.5-15.5); WBC 15.2 k/uL (3.8-10.6)
[2023-01-26 17:10] LABS: ALT 34 U/L (4-34); AST 29 U/L (14-36); African American GFR (CKD) >90 (>60 ml/min/1.73 sqM); Albumin 4.7 g/dL (3.5-5.0); Albumin/Globulin Ratio 1.3; Alkaline Phosphatase 75 U/L (38-126); Anion Gap 10 mmol/L; Blood Urea Nitrogen 12 mg/dL (7-17); Calcium 9.3 mg/dL (8.4-10.2); Carbon Dioxide 27 mmol/L (22-30); Chloride 102 mmol/L (98-107); Globulin 3.7 g/dL; Glucose 136 mg/dL (74-99); Non-African American GFR(CKD) >90 (>60 ml/min/1.73 sqM); Potassium 4.3 mmol/L (3.5-5.1); Sodium 139 mmol/L (137-145); Total Bilirubin 1.2 mg/dL (0.2-1.3); Total Protein 8.4 g/dL (6.3-8.2)
--- NOTE | 2023-01-26 17:38 | CA ---
Transthoracic Echo Report Name: Pavithra Polanco Age: 67 Gender: F : 1955 Exam Date: 01/26/2023 11:15 Exam Location: [facility] Ht (in): 59 Wt (lb): 141 Ordering Physician: Sunni Heck Attending/Referring Phys: [id number], Maria R Environmental Resource Specialist Bijal Carias RDCS Procedure CPT: Indications: LV function, chest pain Cardiac Hx: Technical Quality: Fair Contrast 1: Total Dose (mL): Contrast 2: Total Dose (mL): MEASUREMENTS (Male / Female) Normal Values 2D ECHO LV Diastolic Diameter PLAX 3.2 cm 4.2 - 5.9 / 3.9 - 5.3 cm LV Systolic Diameter PLAX 2.2 cm IVS Diastolic Thickness 1.0 cm 0.6 - 1.0 / 0.6 - 0.9 cm LVPW Diastolic Thickness 1.1 cm 0.6 - 1.0 / 0.6 - 0.9 cm LV Relative Wall Thickness 0.7 RV Internal Dim ED PLAX 3.2 cm LA Volume 31.9 cm??? 18 - 58 / 22 - 52 cm??? M-MODE Aortic Root Diameter MM 3.0 cm LA Systolic Diameter MM 3.2 cm LA Ao Ratio MM 1.1 AV Cusp Separation MM 2.2 cm DOPPLER AV Peak Velocity 137.5 cm/s AV Peak Gradient 7.6 mmHg AV Mean Velocity 99.4 cm/s AV Mean Gradient 4.4 mmHg AV Velocity Time Integral 24.6 cm LVOT Peak Velocity 109.7 cm/s LVOT Peak Gradient 4.8 mmHg LVOT Velocity Time Integral 21.2 cm MV Area PHT 6.0 cm??? Mitral E Point Velocity 92.2 cm/s Mitral A Point Velocity 97.1 cm/s Mitral E to A Ratio 0.9 MV Deceleration Time 127.4 ms MV E' Velocity 7.8 cm/s Mitral E to MV E' Ratio 11.8 TR Peak Velocity 287.2 cm/s TR Peak Gradient 33.0 mmHg Right Ventricular Systolic Press 36.1 mmHg FINDINGS Left Ventricle Mildly increased left ventricular wall thickness. Left ventricular cavity size normal. Normal left ventricular systolic function with no obvious regional wall motion abnormalities. Left ventricular ejection fraction is estimated at 50-55 %. Right Ventricle Normal right ventricular size and function. Mild pulmonary hypertension. Right Atrium Normal right atrial size. Left Atrium Normal left atrial size. Interatrial septal aneurysm. Mitral Valve Structurally normal mitral valve. Mild mitral regurgitation. Aortic Valve Trileaflet aortic valve. No aortic valve stenosis or regurgitation. Tricuspid Valve Structurally normal tricuspid valve. Mild tricuspid regurgitation. Pulmonic Valve Structurally normal pulmonic valve. Pericardium No pericardial effusion. Aorta Normal size aortic root and proximal ascending aorta. CONCLUSIONS Normal LV systolic function Patient tachycardic Previewed by: Dr. Andres Rivera MD (Electronically Signed) Final Date: 26 January 2023 17:37
[2023-01-26] MEDS ORDERED: SODIUM CHLORIDE 0.9% 1,000 ML IV ONE (18:04)
--- NOTE | 2023-01-26 18:27 | US ---
EXAMINATION TYPE: US gallbladder DATE OF EXAM: 01/26/2023 COMPARISON: NONE CLINICAL HISTORY: abdominal pain. epigastric pain w elevated wbc TECHNIQUE: Multiple sonographic images of the right upper quadrant are obtained. FINDINGS: EXAM MEASUREMENTS: Liver Length: 14.4 cm Gallbladder Wall: 0.7 cm CBD: 0.8 cm Right Kidney: 10.0 x 4.7 x 3.9 cm CHECKOUT OPERATOR NOTES: Pancreas: No gross abnormality. Liver: Heterogeneous appearing. Hypoechoic area seen adjacent to GB measuring 3.4 x 1.4 x 1.7cm. Gallbladder: Thickened wall, gallstones seen Evidence for sonographic Foreman's sign: No CBD: wnl Right Kidney: wnl IMPRESSION: 1. Hepatic steatosis. 2. Nondistended gallbladder with thickened wall appearance. This can be confirmed with CT subsequent CT imaging ordered. Multiple shadowing gallstones are present.
--- NOTE | 2023-01-26 18:36 | CA ---
Stress Echo Report Pavithra Polanco Age: 67 Gender: F : 1955 Exam Date: 01/26/2023 10:59 Exam Location: [facility] Ht (in): 59 Wt (lb): 141 Ordering Physician: Sunni Heck Referring Physician: [id number] R Hospital Technician: NOÉ Technologist Procedure CPT: Indication: CP ICD-9 Codes: Rhythm: Patient History: CHEST PAIN, ANGINA, HTN, ELEVATED CHOLESTEROL LEVELS, PRIOR SMOKER QUIT 17 YEARS AGO, PRIOR CARDIAC CATH, PRIOR CABG Cardiac Medications: Medications in past 24 hours: Contrast: Stress Results Protocol: Navjot Total dose(mL): Exercise Duration (min:sec): 6:[address] Depression (mm): Angina Score: Thomas Score: METS: 8.1 Resting HR: 105 Resting BP: 153 / 61 Peak HR: 150 Peak BP: 152 / 57 Max Predicted HR: 153 98 % Max Predicted HR Target HR: 130 Double Product: [id number] Stress Summary: BP Response: Reason for Termination: MAX EXERTION/TARGET HR Cardiac Symptoms: NO SYMPTOMS ECG Analysis Resting ECG: Stress ECG: Arrhythmia: Echo Analysis Resting Echo: Peak Echo Analysis: MEASUREMENTS (Male/Female) Normal Values CONCLUSIONS Baseline heart rate 91 beats a minute, Baseline blood pressure 153/61 mmHg Baseline 12-lead EKG shows sinus mechanism with ST depression inferolaterally, greater than 1 mm Patient exercised on a Navjot protocol for 6 minutes 45 seconds achieving a peak heart rate of 150 beats a minute. Normal blood pressure response There were no new ECG changes noted Occasional PVCs noted Baseline 2-D echo images showed normal LV size and systolic function without any clear-cut wall motion abnormalities At peak exercise there was augmentation overall LV contractility with a very subtle inferior basal and inferior septal hypokinesis that seemed to improve on the recovery images Impression Abnormal ECG at baseline precluding further interpretation Possible mild inferobasal/inferoseptal hypokinesis/ischemia Dr. Andres Rivera MD (Electronically Signed) Final Date: 26 January 2023 18:36
[2023-01-26] MEDS: traMADol 50 MG TAB PO PRN (18:40)
--- NOTE | 2023-01-26 18:56 | CT ---
EXAMINATION TYPE: CT abdomen pelvis w con CT DLP: 578.0 mGycm, Automated exposure control for dose reduction was used. DATE OF EXAM: 01/26/2023 6:39 PM COMPARISON: Ultrasound same day. CLINICAL INDICATION:Female, 67 years old with history of abdominal pain w/ concerns for mesenteric is chemia; pain. concern for mesenteric ischemia. TECHNIQUE: Axial CT of the abdomen and pelvis. Sagittal and coronal reformats were created on a [employer] workstation. Contrast used:100ML mL of Isovue 300 with IV Contrast, Oral contrast used: without Oral Contrast FINDINGS: LOWER CHEST: Unremarkable ABDOMEN LIVER: Diffuse low-attenuation to the parenchyma. GALLBLADDER AND BILE DUCTS: Mild gallbladder wall thickening. Mild hyperemia of the gallbladder mucos a. PANCREAS: Unremarkable. SPLEEN: Unremarkable. ADRENAL GLANDS: Unremarkable. KIDNEYS AND URETERS: No evidence of hydronephrosis or renal calculus. The ureters are unremarkable. PELVIS BLADDER: Unremarkable REPRODUCTIVE: Unremarkable. ABDOMEN & PELVIS STOMACH AND BOWEL: No evidence of bowel obstruction. No evidence for bowel wall thickening. There is scattered colonic diverticula present. Appendix is normal. PERITONEUM/RETROPERITONEUM: No evidence of pneumoperitoneum or free fluid. VASCULATURE: Severe atherosclerotic calcifications are present throughout the abdominal aorta and its branches. No evidence of aortic aneurysm. Visualized vascular structures are patent within the limit ations of this exam. MUSCULOSKELETAL: No acute osseous abnormalities, scoliosis changes of the spine levoscoliosis apex L4 . LYMPH NODES: No gross evidence for lymphadenopathy. SOFT TISSUE/ABDOMINAL WALL: Unremarkable IMPRESSION: 1. No finding to suggest mesenteric ischemia. 2. Mild gallbladder wall thickening with hyperemic mucosa, the gallbladder is nondistended and could contribute to wall thickening appearance. Correlate for chronic cholecystitis with HIDA scan. 3. Hepatic steatosis.
[2023-01-26] MEDS: METOPROLOL SUCCINATE (ER) 25 MG TAB.ER.24H PO SCH (21:49)
[2023-01-26] MEDS: PRAVASTATIN SODIUM 20 MG TAB PO SCH (21:49)
[2023-01-27 00:33] LABS: African American GFR (CKD) 98.4 (60.0-200.0); Albumin 4.4 g/dL (3.8-4.9); Albumin/Globulin Ratio 1.32 (1.60-3.17); Anion Gap 20.2 mmol/L (10.00-18.00); BUN/Creat Ratio 15.16 Ratio (12.00-20.00); Blood Urea Nitrogen 11.1 mg/dL (9.0-27.0); Calcium 9.1 mg/dL (8.7-10.3); Carbon Dioxide 18.3 mmol/L (20.0-27.5); Globulin 3.3 g/dL (1.6-3.3); Non-African American GFR(CKD) 84.9 (60.0-200.0); Potassium 4.1 mmol/L (3.5-5.5); Total Bilirubin 0.6 mg/dL (0.30-1.20); Total Protein 7.7 g/dL (6.2-8.2)
[2023-01-27] MEDS: SODIUM CHLORIDE 0.9% 1,000 ML IV SCH ×3 (01:15→17:20)
[2023-01-27] MEDS: amLODIPine 5 MG TAB PO SCH (09:21)
[2023-01-27] MEDS: ASPIRIN 81 MG PO SCH (09:21)
[2023-01-27] MEDS: lisinopriL 5 MG TAB PO SCH (09:21)
[2023-01-27] MEDS: ISOSORBIDE MONONITRATE ER 30 MG TAB.ER.24H PO SCH (09:21)
[2023-01-27 09:52] LABS: ALT 28 U/L (4-34); AST 26 U/L (14-36); African American GFR (CKD) >90 (>60 ml/min/1.73 sqM); Albumin 4.1 g/dL (3.5-5.0); Albumin/Globulin Ratio 1.2; Alkaline Phosphatase 70 U/L (38-126); Anion Gap 11 mmol/L; Blood Urea Nitrogen 10 mg/dL (7-17); Calcium 8.3 mg/dL (8.4-10.2); Carbon Dioxide 21 mmol/L (22-30); Chloride 106 mmol/L (98-107); Globulin 3.5 g/dL; Glucose 126 mg/dL (74-99); Non-African American GFR(CKD) >90 (>60 ml/min/1.73 sqM); Sodium 138 mmol/L (137-145); Total Bilirubin 1.4 mg/dL (0.2-1.3); Total Protein 7.6 g/dL (6.3-8.2)
[2023-01-27 09:54] LABS: HCT 41.2 % (34.0-46.0); HGB 14.6 gm/dL (11.4-16.0); MCH 31.8 pg (25.0-35.0); MCHC 35.4 g/dL (31.0-37.0); MCV 89.8 fL (80.0-100.0); Mean Platelet Volume 8.2; Platelet Count 287 k/uL (150-450); RBC 4.59 m/uL (3.80-5.40); RDW 12.6 % (11.5-15.5); WBC 17.8 k/uL (3.8-10.6)
--- NOTE | 2023-01-27 10:04 | P.PN ---
Progress Note - Text Patient's symptoms are consistent with a GI etiology She has known coronary artery disease, multivessel Status post coronary artery bypass grafting The abnormality on the stress test images is very subtle. She is a very subtle hypokinesis in the inferior wall. At baseline the inferior wall is very mildly hypokinetic I would recommend workup of her GI condition and medical treatment for coronary artery disease
--- NOTE | 2023-01-27 11:39 | P.PN ---
Subjective Progress Note Date: 01/27/23 HISTORY OF PRESENT ILLNESS: This is a 67-year-old female with a past medical history significant for coronary artery disease with previous CABG, hypertension, and hyperlipidemia. Patient follows in the office with Dr. Silverio. We have been asked to see the patient in consultation for chest pain. Patient examined at the bedside. She began having pressure in the middle of her chest yesterday. She initially thought it was heartburn as she had ate tacos which sometimes causes her to have heartburn. She states that she took Pepcid without any relief. She denied any radiation of the pain. Denied any shortness of breath. She states that she came to the ER for further evaluation. She received Dilaudid when she came to the ER which took away her pain. She states she's had no further episodes of chest pain since that time. Patient's vitals remain stable. * EKG reveals sinus mechanism with no signs of acute ischemia * Chest xray negative for acute process * Laboratory data: WBC 13.6. Hemoglobin 14.3. Platelet count 295. Sodium 138. Potassium 4.2. BUN 13. Creatinine 0.55. D-dimer 0.34. Troponin negative 3 * Current home cardiac medications include Pravachol 20 mg daily, lisinopril 5 mg daily, amlodipine 5 mg daily, aspirin 81 mg daily, and metoprolol succinate 25 mg at night * Most recent echocardiogram obtained in January 2022 revealed ejection fraction 60%, minimal mitral and tricuspid insufficiency without pulmonary hypertension. * Patient underwent Cardiolite stress testing in April 2022. Patient walked for 7 minutes. No ischemia noted. 01/27/2023 Patient examined this morning at the bedside. Patient denies chest pain or pressure. Denies SOB. Vital signs are stable. Echocardiogram completed revealing ejection fraction 50-55%. Stress echocardiogram revealing possible mild inferior basal inferior septal hypokinesis. Discussed stress test with Dr. Rivera this morning and also Dr. Silverio. Patient's abnormality on the stress t est is very subtle hypokinesis of the inferior wall. At baseline inferior wall is very mildly hypokinetic. This is likely secondary to her history of CABG. PHYSICAL EXAM: VITAL SIGNS: Reviewed. GENERAL: Well-developed in no acute distress. HEENT: Head is normocephalic. Pupils are equal, round. Sclerae anicteric. Mucous membranes of the mouth are moist. Neck supple. No JVD or thyromegaly LUNGS: Respirations even and unlabored. Lungs essentially clear to auscultation bilaterally. HEART: Regular rate and rhythm. S1 and S2 heard. ABDOMEN: Soft. Nondistended. Nontender. EXTREMITIES: Normal range of motion. No clubbing or cyanosis. Peripheral pulses intact. No lower extremity edema NEUROLOGIC: Awake and alert. Oriented x 3. ASSESSMENT: Chest pain, troponins negative 3 Coronary artery disease with history of CABG Hypertension Hyperlipidemia History of GERD PLAN: Continue current cardiac medications Continue medical management in regards to patients stress test Continued workup of GI symptoms recommended Stable from a cardiac standpoint We will sign off. Please reconsult if needed. Nurse practitioner note has been reviewed by physician. Signing provider agrees with the documented findings, assessment, and plan of care. Objective - Vital Signs Vital signs: Vital Signs Temp 99.5 F 01/27/23 07:00 Pulse 86 01/27/23 07:00 Resp 16 01/27/23 07:00 BP 138/72 01/27/23 07:00 Pulse Ox 98 01/27/23 07:52 FiO2 21 01/26/23 09:00 Intake & Output 01/26/23 01/27/23 01/27/23 18:59 06:59 18:59 Other: Voiding Method Toilet Toilet # Voids 3 2 - Labs CBC & Chem 7: 01/27/23 08:58 01/27/23 08:58 Labs: Abnormal Lab Results - Last 24 Hours (Table) 01/26/23 01/26/23 01/26/23 Range/Units 08:04 16:35 16:35 WBC 15.2 H (3.8-10.6) k/uL Carbon Dioxide 18.3 L (20.0-27.5) mmol/L Anion Gap 20.20 H (10.00-18.00) mmol/L Glucose 128 H 136 H (70-110) mg/dL Calcium (8.4-10.2) mg/dL Total Bilirubin (0.2-1.3) mg/dL Total Protein 8.4 H (6.3-8.2) g/dL Albumin/Globulin Ratio 1.32 L (1.60-3.17) g/dL 01/27/23 01/27/23 Range/Units 08:58 08:58 WBC 17.8 H (3.8-10.6) k/uL Carbon Dioxide 21 L (20.0-27.5) mmol/L Anion Gap (10.00-18.00) mmol/L Glucose 126 H (70-110) mg/dL Calcium 8.3 L (8.4-10.2) mg/dL Total Bilirubin 1.4 H (0.2-1.3) mg/dL Total Protein (6.3-8.2) g/dL Albumin/Globulin Ratio (1.60-3.17) g/dL
--- NOTE | 2023-01-27 13:45 | P.GSCN ---
History of Present Illness Consult date: 01/27/23 History of present illness: CHIEF COMPLAINT: Epigastric pain HISTORY OF PRESENT ILLNESS: This 67-year-old female who initially presented to the hospital with complaints of chest pain. She has a known history of coronary artery disease with previous CABG. She was seen evaluated by cardiology service and no evidence of acute coronary syndrome. Troponins were negative. And cardiology is cleared patient for discharge. Patient's main pain was more in the epigastric area. She describes it as a burning sensation. This pain woke her up Wednesday morning. The previous evening she had eaten tacos. And the pain worsened after eating doughnuts. Patient had a gallbladder ultrasound completed that had shown a nondistended gallbladder with thickened wall appearance and multiple gallstones. Patient did have nausea with dry heaves. No vomiting. She's afebrile. White count is elevated. Medicine service did add antibiotics and they have ordered a HIDA scan. Patient's past abdominal surgical history does include a hysterectomy. Patient does report her pain is better today. PAST MEDICAL HISTORY: See below PAST SURGICAL HISTORY: See below MEDICATIONS: See below ALLERGIES: See below SOCIAL HISTORY: No illicit drug use. REVIEW OF SYSTEMS: CONSTITUTIONAL: Denies fever or chills. HEENT: Denies blurred vision, vision changes, or eye pain. Denies hemoptysis CARDIOVASCULAR: Denies chest pain or pressure. RESPIRATORY: No shortness of breath. GASTROINTESTINAL: See HPI for pertinent findings HEMATOLOGIC: Denies bleeding disorders. GENITOURINARY: Denies any blood in urine or increased urinary frequency. SKIN: Denies pruitis. Denies rash. PHYSICAL EXAM: VITAL SIGNS: Reviewed GENERAL: Well-developed in no acute distress. HEENT: No sclera icterus. Extraocular movements grossly intact. Moist buccal mucosa. Head is atraumatic, normocephalic. No nasal drainage. ABDOMEN: Soft. Nondistended. Nontender NEUROLOGIC: Alert and oriented. Cranial nerves II through XII grossly intact. LABORATORY DATA: WBC elevated at 17.8 Hgb 14.6 platelets 287 Sodium 130 potassium 4.0 creatinine 0.66 Lactic acid 0.8 Total bilirubin 1.4 AST 26 ALT 28 alk phos 70 Troponin negative IMAGING: Gallbladder ultrasound shows hepatic steatosis. Nondistended gallbladder with thickened wall appearance. This can be confirmed with CT imaging. Multiple shadowing gallstones are present Computed tomography scan abdomen and pelvis no findings to suggest mesenteric ischemia. Mild gallbladder wall thickening with hyperemic mucosa, the gallbladder is nondistended and could contribute to wall thickening appearance. Correlate for chronic cholecystitis with HIDA scan. Hepatic steatosis. HIDA scan pending ASSESSMENT: 1. Epigastric abdominal pain 2. Gallbladder wall thickening and gallstones noted on ultrasound and CAT scan 3. Leukocytosis PLAN: -Further recommendations forthcoming per surgeon -Follow up on HIDA scan results -Continue antibiotics -Keep patient nothing by mouth for possible surgical intervention -Continue supportive care Thank you for this consultation Physician Telephone Sterilizer note has been reviewed by physician. Signing provider agrees with the documented findings, assessment, and plan of care. I have personally seen and examined the patient, reviewed the POULTRY SEXER /PAs history, exam and MDM and agree with the assessment and plan as written. Based on total visit time, I have performed more than 50% of the visit. As above: Patient with symptoms laboratory studies and radiographic studies consistent with acute cholecystitis. Options discussed with patient. We'll proceed with laparoscopic, possible open cholecystectomy at this time. Risks of bleeding, infection, bile leak, bile duct injury, retained common bile duct stone, trocar injury, conversion to an open procedure, hernia, anesthesia related complications were reviewed. The patient understands and wishes to proceed. Past Medical History Past Medical History: GERD/Reflux, Hypertension History of Any Multi-Drug Resistant Organisms: None Reported Past Surgical History: Coronary Bypass/CABG, Heart Catheterization Additional Past Surgical History / Comment(s): CABG X 6 Past Anesthesia/Blood Transfusion Reactions: No Reported Reaction Past Psychological History: No Psychological Hx Reported Smoking Status: Former smoker Past Alcohol Use History: None Reported Past Drug Use History: None Reported - Past Family History Mother Family Medical History: COPD Medications and Allergies Home Medications Medication Instructions Recorded Confirmed Type Aspirin EC [Ecotrin Low Dose] 81 mg PO DAILY 01/25/23 01/25/23 History Metoprolol Succinate [Metoprolol 25 mg PO HS 01/25/23 01/25/23 History Succinate ER] Pravastatin Sodium [Pravachol] 20 mg PO DAILY 01/25/23 01/25/23 History amLODIPine [Norvasc] 5 mg PO DAILY 01/25/23 01/25/23 History lisinopriL [Zestril] 5 mg PO DAILY 01/25/23 01/25/23 History Allergies Allergy/AdvReac Type Severity Reaction Status Date / Time morphine AdvReac Nausea & Verified 01/25/23 17:44 Vomiting & Diarrhea Surgical - Exam Vital Signs Temp Pulse Resp BP Pulse Ox 97.7 F 96 18 160/81 95 01/25/23 15:23 01/25/23 15:23 01/25/23 15:23 01/25/23 15:23 01/25/23 15:23 Results - Labs 01/27/23 08:58 01/27/23 08:58 Abnormal Lab Results - Last 24 Hours (Table) 01/26/23 01/26/23 01/26/23 Range/Units 08:04 16:35 16:35 WBC 15.2 H (3.8-10.6) k/uL Carbon Dioxide 18.3 L (20.0-27.5) mmol/L Anion Gap 20.20 H (10.00-18.00) mmol/L Glucose 128 H 136 H (70-110) mg/dL Calcium (8.4-10.2) mg/dL Total Bilirubin (0.2-1.3) mg/dL Total Protein 8.4 H (6.3-8.2) g/dL Albumin/Globulin Ratio 1.32 L (1.60-3.17) g/dL 01/27/23 01/27/23 Range/Units 08:58 08:58 WBC 17.8 H (3.8-10.6) k/uL Carbon Dioxide 21 L (20.0-27.5) mmol/L Anion Gap (10.00-18.00) mmol/L Glucose 126 H (70-110) mg/dL Calcium 8.3 L (8.4-10.2) mg/dL Total Bilirubin 1.4 H (0.2-1.3) mg/dL Total Protein (6.3-8.2) g/dL Albumin/Globulin Ratio (1.60-3.17) g/dL Diabetes panel 01/26/23 01/26/23 01/27/23 Range/Units 08:04 16:35 08:58 Sodium 143 139 138 (135-145) mmol/L Potassium 4.1 4.3 4.0 (3.5-5.5) mmol/L Chloride 105 102 106 (96-109) mmol/L Carbon Dioxide 18.3 L 27 21 L (20.0-27.5) mmol/L BUN 11.1 12 10 (9.0-27.0) mg/dL Creatinine 0.7 0.64 0.66 (0.6-1.5) mg/dL Glucose 128 H 136 H 126 H (70-110) mg/dL Calcium 9.1 9.3 8.3 L (8.7-10.3) mg/dL AST 22 29 26 (13-35) U/L ALT 31 34 28 (8-44) U/L Alkaline Phosphatase 71 75 70 (41-126) U/L Total Protein 7.7 8.4 H 7.6 (6.2-8.2) g/dL Albumin 4.4 4.7 4.1 (3.8-4.9) g/dL Calcium panel 01/26/23 01/26/23 01/27/23 Range/Units 08:04 16:35 08:58 Calcium 9.1 9.3 8.3 L (8.7-10.3) mg/dL Albumin 4.4 4.7 4.1 (3.8-4.9) g/dL Pituitary panel 01/26/23 01/26/23 01/27/23 Range/Units 08:04 16:35 08:58 Sodium 143 139 138 (135-145) mmol/L Potassium 4.1 4.3 4.0 (3.5-5.5) mmol/L Chloride 105 102 106 (96-109) mmol/L Carbon Dioxide 18.3 L 27 21 L (20.0-27.5) mmol/L BUN 11.1 12 10 (9.0-27.0) mg/dL Creatinine 0.7 0.64 0.66 (0.6-1.5) mg/dL Glucose 128 H 136 H 126 H (70-110) mg/dL Calcium 9.1 9.3 8.3 L (8.7-10.3) mg/dL Adrenal panel 01/26/23 01/26/23 01/27/23 Range/Units 08:04 16:35 08:58 Sodium 143 139 138 (135-145) mmol/L Potassium 4.1 4.3 4.0 (3.5-5.5) mmol/L Chloride 105 102 106 (96-109) mmol/L Carbon Dioxide 18.3 L 27 21 L (20.0-27.5) mmol/L BUN 11.1 12 10 (9.0-27.0) mg/dL Creatinine 0.7 0.64 0.66 (0.6-1.5) mg/dL Glucose 128 H 136 H 126 H (70-110) mg/dL Calcium 9.1 9.3 8.3 L (8.7-10.3) mg/dL Total Bilirubin 0.60 1.2 1.4 H (0.30-1.20) mg/dL AST 22 29 26 (13-35) U/L ALT 31 34 28 (8-44) U/L Alkaline Phosphatase 71 75 70 (41-126) U/L Total Protein 7.7 8.4 H 7.6 (6.2-8.2) g/dL Albumin 4.4 4.7 4.1 (3.8-4.9) g/dL
[2023-01-27] MEDS: PIPERACILLIN-TAZOBACTAM 3.375 GM in SODIUM CHLORIDE 0.9% 100 ML IVPB SCH ×2 (15:05→22:09)
--- NOTE | 2023-01-27 15:32 | P.PN ---
Subjective Progress Note Date: 01/27/23 (delayed charting seen at 0915) Patient is a 67-year-old female with a past medical history of coronary artery disease status post reported 6 vessel CABG 17 years ago, hypertension, and dy slipidemia who presented to the ER with complaints of chest pain. In the emergency department she underwent an extensive evaluation. Initial EKG showed no significant ST-T wave changes. Chest x-ray was unremarkable. Laboratory analysis was remarkable for a leukocytosis of 19.9, d-dimer 0.34 and troponin of less than 0.012. She was given an aspirin, nitroglycerin, and a heparin drip was started. She was admitted to cardiac observation. She was seen by cardiology the next morning and a stress echo was ordered. Patient seen and examined at bedside. She reports that last night at 2-3 am she awoke and coughed and then had pain in her b/l rib cage and an episdoe of dry heaving. She did not have much relief with GI cocktail. Vital signs reviewed General: nontoxic, no distress, appears at stated age Cardiovascular: S1S2 reg, no murmur, positive posterior tibial pulse bilateral, Lungs: Decreased bs bilateral, no rhonchi, no rales , no accessory muscle use Abdominal: soft, nontender to palpation, no guarding, no appreciable organomegaly Ext: no gross muscle atrophy, no edema, no contractures Neuro: CN II-XI grossly intact, no focal neuro deficits Psych: Alert, oriented, appropriate affect Assessment: Chest pain, non cardiac Gallstones- possible acute vs chronic cholecystitis Elevated T. Bili Leukocytosis History of coronary artery disease status post coronary artery bypass grafting Hypertension Dyslipidemia Imaging: Gallbladder US: Hepatic Steatosis, non distended GB with thickened wall, mutiple shadowing gallstones present CT abd and Pelvis: No mesenteric ischemia, mild gallbladder wall thickening with hyperemic mucosa, GB nondistended possible chronic cholecystitis Data Review: Vital signs reviewed and temp 99.2, HR 86, RR 16, BP 138/72, adn O2 sat 95% Labs reviewed and remarkable for increased WBC at 17.8, CO2 21, T bili 1.4 Plan: - HIDA scan - Start zosyn given WBC of 17.8 with pain episode last evening and episode of dry heaves. - Decrease IVF to 100 cc/hr - Consult surgery regarding possible need for cholecystectomy, case discussed with LASER SYSTEMS ENGINEER and considereing inpatient vs outpatient amos - D/W cardio LASER SYSTEMS ENGINEER and patient is cleared from their standpoint, no need for further testing. -Continue with aspirin 81 mg daily, Pravachol 20 mg at night, metoprolol 25 mg at night, and lisinopril 5 mg daily -Norvasc 5 mg daily -Added Dilaudid 1 mg every 4 hours as needed for pain and tramadol 50 mg 4 times daily as needed for moderate pain. This dictation was prepared using [employer] voice recognition software. Though every attempt is made to correct errors during during dictation some may still exist. Objective - Vital Signs Vital signs: Vital Signs Temp 98.9 F 01/27/23 14:57 Pulse 89 01/27/23 14:57 Resp 16 01/27/23 14:57 BP 107/63 01/27/23 14:57 Pulse Ox 94 L 01/27/23 14:57 FiO2 21 01/26/23 09:00 Intake & Output 01/26/23 01/27/23 01/27/23 18:59 06:59 18:59 Other: Voiding Method Toilet Toilet # Voids 3 2 3 - Labs CBC & Chem 7: 01/27/23 08:58 01/27/23 08:58 Labs: Abnormal Lab Results - Last 24 Hours (Table) 01/26/23 01/26/23 01/26/23 Range/Units 08:04 16:35 16:35 WBC 15.2 H (3.8-10.6) k/uL Carbon Dioxide 18.3 L (20.0-27.5) mmol/L Anion Gap 20.20 H (10.00-18.00) mmol/L Glucose 128 H 136 H (70-110) mg/dL Calcium (8.4-10.2) mg/dL Total Bilirubin (0.2-1.3) mg/dL Total Protein 8.4 H (6.3-8.2) g/dL Albumin/Globulin Ratio 1.32 L (1.60-3.17) g/dL 01/27/23 01/27/23 Range/Units 08:58 08:58 WBC 17.8 H (3.8-10.6) k/uL Carbon Dioxide 21 L (20.0-27.5) mmol/L Anion Gap (10.00-18.00) mmol/L Glucose 126 H (70-110) mg/dL Calcium 8.3 L (8.4-10.2) mg/dL Total Bilirubin 1.4 H (0.2-1.3) mg/dL Total Protein (6.3-8.2) g/dL Albumin/Globulin Ratio (1.60-3.17) g/dL
--- NOTE | 2023-01-27 16:35 | NM ---
EXAMINATION TYPE: NM hepatobiliary wo EF DATE OF EXAM: 01/27/2023 4:18 PM COMPARISON: CT abdomen pelvis most recent from 01/26/2023. CLINICAL INDICATION:Female, 67 years old with history of pain, leukocytosis; TECHNIQUE: The patient was given 5.02 mCi of Technetium 99m-Mebrofenin as a radiotracer and multiple scintigraphic images were obtained of the abdomen. FINDINGS: No evidence for radiotracer uptake within the gallbladder at 4 hours delayed imaging. Radiotracer is seen within the small bowel. IMPRESSION: Findings compatible with acute cholecystitis.
[2023-01-27] MEDS ORDERED: BUPIVACAIN-EPI 0.25%-1:200,000 30 ML VIAL SQ ONE ×2 (16:46→17:32)
[2023-01-27] MEDS ORDERED: LIDOCAINE 2% INJ 20 MG/ML (2 ML VIAL) ONE (17:16)
[2023-01-27] MEDS ORDERED: PROPOFOL 10 MG/ML 20 ML VIAL IV ONE (17:16)
[2023-01-27] MEDS ORDERED: NEOSTIGMINE 1 MG/ML 10 ML VIAL ONE (17:16)
[2023-01-27] MEDS ORDERED: ROCURONIUM 10 MG/ML (5 ML VIAL) IV ONE (17:16)
[2023-01-27] MEDS ORDERED: PHENYLEPHRINE-0.9% NACL SYG 1,000 MCG/10 ML SYRINGE ONE (17:16)
[2023-01-27] MEDS ORDERED: GLYCOPYRROLATE 0.2 MG/ML 2 ML VIAL ONE (17:16)
[2023-01-27] MEDS ORDERED: MIDAZOLAM 2 MG/2 ML VIAL ONE (17:16)
[2023-01-27] MEDS ORDERED: SUCCINYLCHOLINE CHLORIDE 200 MG/10 ML VIAL IV ONE (17:16)
[2023-01-27] MEDS ORDERED: fentaNYL (PF) 50 MCG/ML 2 ML AMP ONE (17:16)
[2023-01-27] MEDS ORDERED: IV FLUID CONTINUATION 800 ML IV ONE (17:40)
[2023-01-27] MEDS ORDERED: IOPAMIDOL-250 100ML BTL INTRAARTER ONE ×2 (19:11)
[2023-01-27] MEDS ORDERED: LACTATED RINGERS 1,000 ML IV ONE (20:02)
[2023-01-27] MEDS ORDERED: NALOXONE 0.4 MG/ML 1 ML VIAL IV PRN (20:22)
[2023-01-27] MEDS ORDERED: ONDANSETRON 4 MG/2 ML VIAL IVP PRN (20:23)
[2023-01-27] MEDS ORDERED: HYDROmorphone 0.5 MG/0.5 ML SYRINGE IVP PRN (20:23)
[2023-01-27] MEDS ORDERED: HYDROmorphone 0.5 MG/0.5 ML SYRINGE IVP ONE ×4 (20:25→21:10)
--- NOTE | 2023-01-27 20:32 | P.OP ---
Date of Procedure: 01/27/23 Procedure(s) Performed: PREOPERATIVE DIAGNOSIS: Acute cholecystitis POSTOPERATIVE DIAGNOSIS: Acute calculus cholecystitis PROCEDURE: Attempted laparoscopic cholecystectomy, conversion to open cholecystectomy, intraoperative cholangiogram SURGEON: Luna EBL: 75 mL ANESTHESIA: Gen. COMPLICATIONS: None OPERATIVE PROCEDURE: The patient was brought and placed on the operating room table in the supine position. The patient was placed under general anesthesia at that time. The abdomen was prepped and draped in the usual sterile fashion. A small curvilinear supraumbilical incision was made. The fascia was grasped with the Love forceps. The fascia was retracted anteriorly. The Veress needle was advanced into the peritoneal cavity. The saline drop test was normal. Insufflation took place up to 15 mmHg. A 5 mm optical trocar was advanced and the peritoneal cavity. 2 additional 5 mm trochars were placed in the right upper quadrant under direct visualization. A 12 mm trocar was advanced into the epigastric incision site. The gallbladder was quite indurated. The wall of the gallbladder was thickened. Was difficult to grasp because of the stones palpated in the gallbladder itself. There were no gangrenous changes present. The gallbladder was retracted superiorly and laterally. The peritoneum overlying the infundibulum was bluntly dissected. As we worked from the fundus down towards the infundibulum the degree of inflammatory changes stayed about the same. We got to a point at the infundibulum were I could no longer visualized the structures appropriately and felt it was safest at that time to convert to an open procedure. The pneumoperitoneum was evacuated. A right subcostal incision was made connecting are 3 upper abdominal incision sites. Dissection through the subcutaneous fat fascia and muscular layers took place using electrocautery. The Bookwalter was utilized. The gallbladder was removed from the liver bed from the fundus down. Palpation the gallbladder reveals significant induration and indwelling stones. As we were about one half the way down the gallbladder fossa there was a narrow mesentery of the gallbladder posteriorly that was able to be carefully dissected using blunt dissection and the right angle forceps. As we approached the infundibulum again it was difficult to say with certainty where the common bile duct and common hepatic duct were present. It did appear that we were dealing with a gallbladder that was indurated straight up to the junction. I decided to proceed with cholangiogram at that time to better evaluate the anatomical structures. Initially we tried using a balloon cholangiogram catheter. The balloon was not staying in place appropriate. At that time I clamped the infundibulum using a Nan forceps and a 23-gauge butterfly needle was placed in the infundibulum with extension tubing attached to it. Using fluoroscopy a cholangiogram took place. This confirmed that we were above the level of the junction with the common bile duct. The patient's common hepatic duct immediately proximal to the cystic duct was narrowed and this was consistent with intraoperative findings of probable [place] syndrome. The infundibulum was so stuck in that area that I decided to transect the infundibulum proximally 1 cm away from the junction with the common hepatic and common bile duct. Initially we used a TX 60 blue load stapler however as the stapler was fired the tissues were so thick that it for immediately. I sharply removed the staple line. The infundibulum was then oversewn using a running 2-0 Ethibond stitch. No evidence of bile leakage from that area was noted. We were right about at the level where our 23-gauge needle had been inserted into in the infundibulum. I could not visualize a needle hole on the patient's side. No bile was seen. Irrigation took place. No bleeding was seen. Small vascular structures during our dissection were clipped or ligated using silk sutures. A drain was brought into the abdomen from the lateral aspect of the right upper quadrant and laid along the undersurface of the liver and the gallbladder fossa. This was sutured in place using a 2-0 silk stitch. I then reapproximated the muscular layers in 2 layers using #1 double-stranded PDS suture 2-0 silk sutures. Subcutaneous tissues were irrigated. Skin was reapproximated using danielle. Sterile dressings were applied. Patient's family was updated as to the intraoperative findings. At the end of this procedure the sponge and needle counts were correct. DISPOSITION: Stable to the recovery room
--- NOTE | 2023-01-27 20:34 | FL ---
EXAMINATION TYPE: FL guidance operating room DATE OF EXAM: 01/27/2023 HISTORY: Fluoroscopy time 8.6185 DAP fluoroscopy provided. IMPRESSION: 1. Fluoroscopy time.
[2023-01-27] MEDS: HEPARIN SODIUM,PORCINE/PF 5,000 UNIT/0.5 ML SYRINGE SQ SCH (22:57)
[2023-01-27] MEDS: METOPROLOL SUCCINATE (ER) 25 MG TAB.ER.24H PO SCH (22:57)
[2023-01-27] MEDS: PRAVASTATIN SODIUM 20 MG TAB PO SCH (22:57)
[2023-01-28] MEDS: ACETAMINOPHEN TAB 325 MG TAB PO PRN ×3 (01:25→12:36)
[2023-01-28] MEDS: HYDROmorphone 1 MG/ML 1 ML SYRINGE IVP PRN ×3 (01:25→08:40)
[2023-01-28] MEDS: PIPERACILLIN-TAZOBACTAM 3.375 GM in SODIUM CHLORIDE 0.9% 100 ML IVPB SCH ×2 (03:15→12:36)
[2023-01-28] MEDS: SODIUM CHLORIDE 0.9% 1,000 ML IV SCH ×3 (03:15→23:39)
[2023-01-28] MEDS: lisinopriL 5 MG TAB PO SCH (08:08)
[2023-01-28] MEDS: ASPIRIN 81 MG PO SCH (08:08)
[2023-01-28] MEDS: amLODIPine 5 MG TAB PO SCH (08:08)
[2023-01-28] MEDS: ISOSORBIDE MONONITRATE ER 30 MG TAB.ER.24H PO SCH (08:08)
[2023-01-28] MEDS: HEPARIN SODIUM,PORCINE/PF 5,000 UNIT/0.5 ML SYRINGE SQ SCH ×3 (08:09→23:36)
[2023-01-28] MEDS: metroNIDAZOLE-NS PMX 500 MG in SALINE 1 100ML.BAG IVPB SCH ×3 (08:40→23:36)
[2023-01-28] MEDS: PANTOPRAZOLE 40 MG/10 ML VIAL IV SCH (08:40)
[2023-01-28 10:55] LABS: Basophils # (A) 0.02 X 10*3/uL (0.00-0.10); Basophils % (A) 0.1 %; Eosinophils # (A) 0 X 10*3/uL (0.04-0.35); Eosinophils % (A) 0 %; HCT 38.6 % (37.2-46.3); HGB 12.9 g/dL (12.0-15.0); Immature Grans, Automated 0.4 %; Lymphocytes # (A) 0.48 X 10*3/uL (0.90-5.00); Lymphocytes % (A) 3.4 %; MCH 31.2 pg (27.0-32.0); MCHC 33.4 g/dL (32.0-37.0); MCV 93.5 fL (80.0-97.0); Mean Platelet Volume 10.2 fL (9.5-12.2); Monocytes # (A) 1.31 X 10*3/uL (0.20-1.00); Monocytes % (A) 9.2 %; NRBC Per 100 WBC 0 /100 WBCS (0.0-0.0); Neutrophils # (A) 12.33 X 10*3/uL (1.80-7.70); Neutrophils % (A) 86.9 %; Platelet Count 247 X 10*3/uL (140-440); RBC 4.13 X 10*6/uL (4.10-5.20); RDW 12.4 % (11.5-14.5); WBC 14.19 X 10*3/uL (4.50-10.00)
[2023-01-28 11:29] LABS: African American GFR (CKD) 96.7 (60.0-200.0); Albumin 3.7 g/dL (3.8-4.9); Albumin/Globulin Ratio 1.32 (1.60-3.17); Anion Gap 13.8 mmol/L (10.00-18.00); BUN/Creat Ratio 16.29 Ratio (12.00-20.00); Blood Urea Nitrogen 12.1 mg/dL (9.0-27.0); Calcium 8.1 mg/dL (8.7-10.3); Carbon Dioxide 22.6 mmol/L (20.0-27.5); Globulin 2.8 g/dL (1.6-3.3); Non-African American GFR(CKD) 83.4 (60.0-200.0); Potassium 3.9 mmol/L (3.5-5.5); Total Bilirubin 4.2 mg/dL (0.30-1.20); Total Protein 6.4 g/dL (6.2-8.2)
--- NOTE | 2023-01-28 12:30 | P.PN ---
Subjective Progress Note Date: 01/28/23 Hospital Course: 67-year-old female with a past medical history of coronary artery disease status post reported 6 vessel CABG 17 years ago, hypertension, and dyslipidemia who presented to the ER with complaints of chest pain. In the emergency department she underwent an extensive evaluation. Initial EKG showed no significant ST-T wave changes. Chest x-ray was unremarkable. Laboratory analysis was remarkable for a leukocytosis of 19.9, d-dimer 0.34 and troponin of less than 0.012. She was given an aspirin, nitroglycerin, and a heparin drip was started. She was admitted to cardiac observation. She was seen by cardiology the next morning and a stress echo was ordered. Stress echo showed possible mild inferior basilar/inferior septal hypokinesis. Echocardiogram showed LVEF 50-55%. Per cardiology, patient symptoms less likely to be cardiac, possibly GI. Gallbladder US: Hepatic Steatosis, non distended GB with thickened wall, mutiple shadowing gallstones present. CT abd and Pelvis: No mesenteric ischemia, mild gallbladder wall thickening with hyperemic mucosa, GB nondistended possible chronic cholecystitis. HIDA scan showed findings compatible with acute cholecystitis. Patient was started on Zosyn. She is now status post cholecystectomy. Subjective: Patient seen and examined at bedside. Currently having minimal right upper quadrant pain, but denies any other nausea, vomiting, urinary or bowel complaints. Denies any shortness of breath. Pertinent positives and negatives as discussed above, a complete review of systems was performed and all other systems are negative. Vitals Signs Reviewed. General: nontoxic, no distress, appears at stated age Derm: warm, dry, has drain in place Head: atraumatic, normocephalic, symmetric Eyes: EOMI, no lid lag, anicteric sclera Mouth: no lip lesion, mucus membranes moist Cardiovascular: S1S2 reg, no murmur Lungs: CTA bilateral, no rhonchi, no rales , no accessory muscle use Abdominal: soft, tender to palpation in RUQ],[no guardin],[no appreciable organomegal] Ext:[no gross muscle atroph],[no martinez],[no contracture] Neuro:[ CN II-XI grossly intac],[no focal neuro deficit] Psych:[Aler],[oriente],[appropriate affec] Data Reviewed Today: Pertinent Labs: WBC 14.19, sodium 139, total bili 4.2, AST 328, ALT 275 Assessment and Plan: Patient is critically ill, requiring IV antibiotics. Acute cholecystitis, status post cholecystectomy Sepsis, resolved Chest pain, non cardiac History of coronary artery disease status post coronary artery bypass grafting Hypertension Dyslipidemia -Zosyn discontinued, on IV Flagyl 500 mg every 8 hours, and ceftriaxone 2 g IV every 24 hours -Being controlled with oral Tylenol, oral tramadol, oral ibuprofen, IV Dilaudid as needed -Patient remains nothing by mouth at the moment -Cardiology signed off -Continue amlodipine 5 mg, lisinopril 5 mg, metoprolol 25 mg, Imdur 30 mg -On aspirin 81 mg and pravastatin 20 mg DVT ppx: Subcu heparin Code status: Full code Anticipated discharge place: Pending clinical course Anticipated discharge time: Pending clinical course Objective - Vital Signs Vital signs: Vital Signs Temp 102.2 F H 01/28/23 06:47 Pulse 97 01/28/23 08:00 Resp 17 01/28/23 06:47 BP 121/75 01/28/23 06:47 Pulse Ox 93 L 01/28/23 08:48 FiO2 21 01/27/23 21:18 Intake & Output 01/27/23 01/28/23 01/28/23 18:59 06:59 18:59 Intake Total 800 450 Output Total 95 Balance 800 355 Weight 63.957 kg Intake: IV 800 450 Output: Drainage 20 Right Abdomen 20 Estimated Blood Loss 75 Other: # Voids 3 - Labs CBC & Chem 7: 01/28/23 07:04 01/28/23 07:04 Labs: Abnormal Lab Results - Last 24 Hours (Table) 01/28/23 01/28/23 Range/Units 07:04 07:04 WBC 14.19 H (4.50-10.00) X 10*3/uL Immature Gran # 0.05 H (0.00-0.04) X 10*3/uL Neutrophils # 12.33 H (1.80-7.70) X 10*3/uL Lymphocytes # 0.48 L (0.90-5.00) X 10*3/uL Monocytes # 1.31 H (0.20-1.00) X 10*3/uL Eosinophils # 0 L (0.04-0.35) X 10*3/uL Glucose 125 H (70-110) mg/dL Calcium 8.1 L (8.7-10.3) mg/dL Total Bilirubin 4.20 H (0.30-1.20) mg/dL AST 328 H (13-35) U/L ALT 275 H (8-44) U/L Alkaline Phosphatase 133 H (41-126) U/L Albumin 3.7 L (3.8-4.9) g/dL Albumin/Globulin Ratio 1.32 L (1.60-3.17) g/dL
--- NOTE | 2023-01-28 12:52 | P.PN ---
Subjective Progress Note Date: 01/28/23 Principal diagnosis: Acute cholecystitis Patient seen this morning and states she feels well. She is sitting up in bed. She says her pain is minimal. Her CITLALI drain output is serosanguineous. Patient did have fevers last night as high as 102.5. Hemodynamically is stable. She is afebrile currently. This morning labs show an improvement white blood cell count of 14. Her bilirubin is up to 4 and alkaline phosphatase ALT and AST are elevated as well. Objective - Vital Signs Vital signs: Vital Signs Temp 102.2 F H 01/28/23 06:47 Pulse 97 01/28/23 08:00 Resp 17 01/28/23 06:47 BP 121/75 01/28/23 06:47 Pulse Ox 93 L 01/28/23 08:48 FiO2 21 01/27/23 21:18 Intake & Output 01/27/23 01/28/23 01/28/23 18:59 06:59 18:59 Intake Total 800 450 Output Total 95 Balance 800 355 Weight 63.957 kg Intake: IV 800 450 Output: Drainage 20 Right Abdomen 20 Estimated Blood Loss 75 Other: # Voids 3 - Exam Abdomen: Soft, nondistended, dressing clean and dry, CITLALI as described - Labs CBC & Chem 7: 01/28/23 07:04 01/28/23 07:04 Labs: Abnormal Lab Results - Last 24 Hours (Table) 01/28/23 01/28/23 Range/Units 07:04 07:04 WBC 14.19 H (4.50-10.00) X 10*3/uL Immature Gran # 0.05 H (0.00-0.04) X 10*3/uL Neutrophils # 12.33 H (1.80-7.70) X 10*3/uL Lymphocytes # 0.48 L (0.90-5.00) X 10*3/uL Monocytes # 1.31 H (0.20-1.00) X 10*3/uL Eosinophils # 0 L (0.04-0.35) X 10*3/uL Glucose 125 H (70-110) mg/dL Calcium 8.1 L (8.7-10.3) mg/dL Total Bilirubin 4.20 H (0.30-1.20) mg/dL AST 328 H (13-35) U/L ALT 275 H (8-44) U/L Alkaline Phosphatase 133 H (41-126) U/L Albumin 3.7 L (3.8-4.9) g/dL Albumin/Globulin Ratio 1.32 L (1.60-3.17) g/dL Assessment and Plan (1) Acute cholecystitis Narrative/Plan: 67-year-old female status post open cholecystectomy with cholangiogram. Cholangiogram films obtained last night showed some narrowing of the hepatic duct proximal to the cystic duct junction. Patient's liver enzymes today have jumped up significantly. I suspect this is related to manipulation of the duct with our balloon catheter in addition to the cholangiogram injection itself. Thankfully the patient's drain remains nonbilious and she is doing well clinically with the exception of the fevers. Will recheck labs tomorrow morning. If liver enzymes remain elevated or increased further we'll recommend tertiary care evaluation for GI consult. This was discussed with the patient. For now the patient is requesting food. Will advance diet. Continue antibiotics. Monitor fevers. Current Visit: Yes Status: Acute Code(s): K81.0 - ACUTE CHOLECYSTITIS SNOMED Code(s): 22575879
[2023-01-28] MEDS: IBUPROFEN 800 MG TAB PO PRN (15:28)
[2023-01-28] MEDS: METOPROLOL SUCCINATE (ER) 25 MG TAB.ER.24H PO SCH (20:40)
[2023-01-28] MEDS: PRAVASTATIN SODIUM 20 MG TAB PO SCH (20:40)
[2023-01-29] MEDS: metroNIDAZOLE-NS PMX 500 MG in SALINE 1 100ML.BAG IVPB SCH ×3 (08:05→23:58)
[2023-01-29] MEDS: amLODIPine 5 MG TAB PO SCH (08:13)
[2023-01-29] MEDS: ISOSORBIDE MONONITRATE ER 30 MG TAB.ER.24H PO SCH (08:13)
[2023-01-29] MEDS: traMADol 50 MG TAB PO PRN ×3 (08:13→22:12)
[2023-01-29] MEDS: lisinopriL 5 MG TAB PO SCH (08:13)
[2023-01-29] MEDS: ASPIRIN 81 MG PO SCH (08:13)
[2023-01-29] MEDS: HEPARIN SODIUM,PORCINE/PF 5,000 UNIT/0.5 ML SYRINGE SQ SCH ×3 (08:15→23:58)
[2023-01-29 08:57] LABS: Basophils # (A) 0.01 X 10*3/uL (0.00-0.10); Basophils % (A) 0.1 %; Eosinophils # (A) 0.15 X 10*3/uL (0.04-0.35); Eosinophils % (A) 1.9 %; HCT 34.2 % (37.2-46.3); HGB 11.5 g/dL (12.0-15.0); Immature Grans, Automated 0.2 %; Lymphocytes # (A) 0.32 X 10*3/uL (0.90-5.00); MCH 31.5 pg (27.0-32.0); MCHC 33.6 g/dL (32.0-37.0); MCV 93.7 fL (80.0-97.0); Mean Platelet Volume 10.4 fL (9.5-12.2); Monocytes # (A) 0.76 X 10*3/uL (0.20-1.00); Monocytes % (A) 9.5 %; NRBC Per 100 WBC 0 /100 WBCS (0.0-0.0); Neutrophils # (A) 6.75 X 10*3/uL (1.80-7.70); Neutrophils % (A) 84.3 %; Platelet Count 191 X 10*3/uL (140-440); RBC 3.65 X 10*6/uL (4.10-5.20); RDW 12.3 % (11.5-14.5); WBC 8.01 X 10*3/uL (4.50-10.00)
[2023-01-29 09:11] LABS: African American GFR (CKD) 109.3 (60.0-200.0); Albumin 3.1 g/dL (3.8-4.9); Albumin/Globulin Ratio 1.29 (1.60-3.17); Anion Gap 8.1 mmol/L (10.00-18.00); Blood Urea Nitrogen 10.8 mg/dL (9.0-27.0); Calcium 7.9 mg/dL (8.7-10.3); Carbon Dioxide 25.9 mmol/L (20.0-27.5); Globulin 2.4 g/dL (1.6-3.3); Non-African American GFR(CKD) 94.3 (60.0-200.0); Potassium 4.1 mmol/L (3.5-5.5); Total Bilirubin 3.5 mg/dL (0.30-1.20); Total Protein 5.5 g/dL (6.2-8.2)
[2023-01-29] MEDS: PANTOPRAZOLE 40 MG/10 ML VIAL IV SCH (10:27)
[2023-01-29] MEDS: SODIUM CHLORIDE 0.9% 1,000 ML IV SCH ×2 (10:28→15:55)
--- NOTE | 2023-01-29 11:11 | P.PN ---
Subjective Progress Note Date: 01/29/23 Hospital Course: 67-year-old female with a past medical history of coronary artery disease status post reported 6 vessel CABG 17 years ago, hypertension, and dyslipidemia who presented to the ER with complaints of chest pain. In the emergency department she underwent an extensive evaluation. Initial EKG showed no significant ST-T wave changes. Chest x-ray was unremarkable. Laboratory analysis was remarkable for a leukocytosis of 19.9, d-dimer 0.34 and troponin of less than 0.012. She was given an aspirin, nitroglycerin, and a heparin drip was started. She was admitted to cardiac observation. She was seen by cardiology the next morning and a stress echo was ordered. Stress echo showed possible mild inferior basilar/inferior septal hypokinesis. Echocardiogram showed LVEF 50-55%. Per cardiology, patient symptoms less likely to be cardiac, possibly GI. Gallbladder US: Hepatic Steatosis, non distended GB with thickened wall, mutiple shadowing gallstones present. CT abd and Pelvis: No mesenteric ischemia, mild gallbladder wall thickening with hyperemic mucosa, GB nondistended possible chronic cholecystitis. HIDA scan showed findings compatible with acute cholecystitis. Patient was started on Zosyn. She is now status post cholecystectomy. Subjective: Patient seen and examined at bedside. Currently having minimal right upper quadrant pain, but denies any other nausea, vomiting, urinary or bowel complaints. She is passing gas, no bowel movements. Denies any shortness of breath. Pertinent positives and negatives as discussed above, a complete review of systems was performed and all other systems are negative. Vitals Signs Reviewed. General: nontoxic, no distress, appears at stated age Derm: warm, dry Head: atraumatic, normocephalic, symmetric Eyes: EOMI, no lid lag, anicteric sclera Mouth: no lip lesion, mucus membranes moist Cardiovascular: S1S2 reg, no murmur, positive posterior tibial pulse bilateral, Lungs: CTA bilateral, no rhonchi, no rales , no accessory muscle use Abdominal: soft, mild tenderness to palpation in right upper quadrant, no guarding, no appreciable organomegaly Ext: no gross muscle atrophy, no edema, no contractures Neuro: CN II-XI grossly intact, no focal neuro deficits Psych: Alert, oriented, appropriate affect Data Reviewed Today: Pertinent Labs: WBC 8.01, hemoglobin 11.5, sodium 140, potassium 4.1, total bilirubin 3.5, AST 212, ALT 253, ALP 136 Assessment and Plan: Acute cholecystitis, status post cholecystectomy Sepsis, resolved Transaminitis Chest pain, non cardiac History of coronary artery disease status post coronary artery bypass grafting Hypertension Dyslipidemia -On IV Flagyl 500 mg every 8 hours, and ceftriaxone 2 g IV every 24 hours -Being controlled with oral Tylenol, oral tramadol, oral ibuprofen, IV Dilaudid as needed -Diet has been advanced to clear liquid -Liver function is improving -Gen. surgery following -Cardiology signed off -Continue amlodipine 5 mg, lisinopril 5 mg, metoprolol 25 mg, Imdur 30 mg -On aspirin 81 mg and pravastatin 20 mg DVT ppx: Subcu heparin Code status: Full code Anticipated discharge place: Pending clinical course Anticipated discharge time: Pending clinical course Objective - Vital Signs Vital signs: Vital Signs Temp 98.3 F 01/29/23 06:20 Pulse 86 01/29/23 06:20 Resp 15 01/29/23 08:15 BP 120/73 01/29/23 06:20 Pulse Ox 92 L 01/29/23 10:34 FiO2 21 01/27/23 21:18 Intake & Output 01/28/23 01/29/23 01/29/23 18:59 06:59 18:59 Intake Total 590 Output Total 10 25 10 Balance -10 -25 580 Intake: Oral 590 Output: Drainage 10 25 10 Right Abdomen 10 25 10 Other: Voiding Method Toilet Toilet # Voids 2 - Labs CBC & Chem 7: 01/29/23 05:36 01/29/23 05:36 Labs: Abnormal Lab Results - Last 24 Hours (Table) 01/28/23 01/29/23 01/29/23 Range/Units 07:04 05:36 05:36 RBC 3.65 L (4.10-5.20) X 10*6/uL Hgb 11.5 L (12.0-15.0) g/dL Hct 34.2 L (37.2-46.3) % Lymphocytes # 0.32 L (0.90-5.00) X 10*3/uL Anion Gap 8.10 L (10.00-18.00) mmol/L Glucose 125 H (70-110) mg/dL Calcium 8.1 L 7.9 L (8.7-10.3) mg/dL Total Bilirubin 4.20 H 3.50 H (0.30-1.20) mg/dL AST 328 H 212 H (13-35) U/L ALT 275 H 253 H (8-44) U/L Alkaline Phosphatase 133 H 136 H (41-126) U/L Total Protein 5.5 L (6.2-8.2) g/dL Albumin 3.7 L 3.1 L (3.8-4.9) g/dL Albumin/Globulin Ratio 1.32 L 1.29 L (1.60-3.17) g/dL
[2023-01-29 13:39] LABS: ALT 242 U/L (4-34); AST 203 U/L (14-36); African American GFR (CKD) >90 (>60 ml/min/1.73 sqM); Albumin 2.7 g/dL (3.5-5.0); Alkaline Phosphatase 140 U/L (38-126); Anion Gap 7 mmol/L; Blood Urea Nitrogen 10 mg/dL (7-17); Calcium 7.3 mg/dL (8.4-10.2); Carbon Dioxide 23 mmol/L (22-30); Chloride 107 mmol/L (98-107); Globulin 2.8 g/dL; Glucose 88 mg/dL (74-99); Non-African American GFR(CKD) >90 (>60 ml/min/1.73 sqM); Potassium 3.6 mmol/L (3.5-5.1); Sodium 137 mmol/L (137-145); Total Bilirubin 3.4 mg/dL (0.2-1.3); Total Protein 5.5 g/dL (6.3-8.2)
--- NOTE | 2023-01-29 15:15 | P.PN ---
Subjective Progress Note Date: 01/29/23 CHIEF COMPLAINT: Acute cholecystitis HISTORY OF PRESENT ILLNESS: Patient is postop day #2 status post attempted laparoscopic cholecystectomy with conversion to open cholecystectomy and intraoperative cholangiogram. Patient does complain of some right upper quadrant pain. But it is controlled. She denies any nausea or vomiting. She is tolerating diet. Her liver enzymes and total bilirubin are elevated but trending downwards. Total bili 4.2 down to 3.5 AST 212 ALT 353 and alk phos 136. CMP was repeated again this afternoon and again showing some improvement in the labs total bili 3.4 AST 203 ALT 242 alk phos 140 PHYSICAL EXAM: VITAL SIGNS: Reviewed GENERAL: Well-developed in no acute distress. HEENT: No sclera icterus. Extraocular movements grossly intact. Moist buccal mucosa. Head is atraumatic, normocephalic. Hears conversational speech. No nasal drainage. NECK: Supple without lymphadenopathy. CHEST: Non-labored respirations and equal bilateral excursions. CARDIOVASCULAR: Palpable 2+ radial pulses. ABDOMEN: Soft. Nondistended. Right upper quadrant tenderness. CITLALI drain serosanguineous output MUSCULOSKELETAL: No clubbing or cyanosis. NEUROLOGIC: No focal or lateralizing signs. Cranial nerves II through XII grossly intact. PSYCH: Appropriate affect. Alert and oriented to person, place and time. SKIN: Well perfused. Good skin turgor. ASSESSMENT: 1. Acute cholecystitis status post open cholecystectomy 2. Choledocholithiasis with elevated liver enzymes and total bilirubin PLAN: -Continue supportive care -Follow up on labs in a.m. -Continue to monitor CITLALI drain output -Encourage patient to ambulate -Continue antibiotics Physician Coding Analyst note has been reviewed by physician. Signing provider agrees with the documented findings, assessment, and plan of care. CHIEF COMPLAINT: Acute cholecystitis HISTORY OF PRESENT ILLNESS: The patient is a 67-year-old female status post open cholecystectomy due to cholecystitis. Patient reports regular quadrant pain. She is tolerating diet ROS: No reports of nausea and vomiting. No bowel movements. No fevers or chills. No new chest pain. No productive sputum PHYSICAL EXAM: VITAL SIGNS: Reviewed CONSTITUTIONAL: Well developed and in no acute distress. EYES: Conjuctivae without sclera icterus. Extraocular movements grossly intact. HEAD, EARS, NOSE, THROAT: Moist buccal mucosa. Head is atraumatic, normocephalic. Hears conversational speech. No nasal drainage. RESPIRATORY: Non-labored respirations and equal bilateral excursions. CARDIOVASCULAR: Palpable 2+ radial pulses. ABDOMEN: CITLALI serous. No bile. Dressing intact. MUSCULOSKELETAL: No gross deformity of the lower extremities noted. No clubbing. No cyanosis. SKIN: Good skin turgor. Well perfused. NEUROLOGIC: Cranial nerves II through XII grossly intact. No focal or lateralizing signs. PSYCH: Appropriate affect. Alert and oriented to person, place and time. CLINICAL LABS: Reviewed. Total bilirubin elevated 4.2 to 3.5. WBC normal. LFTs trending down ASSESSMENT: 1. Acute cholecystitis 2. Hyperbilirubinemia PLAN: 1. Continue antibiotics 2. Repeat total bilirubin improved mild improvement 3.5-3.4 3. Patient counseled that persistent moderate elevation of LFTs may warrant transfer outside institution for ERCP for risk of choledocholithiasis Objective - Vital Signs Vital signs: Vital Signs Temp 98.3 F 01/29/23 06:20 Pulse 86 01/29/23 06:20 Resp 15 01/29/23 08:15 BP 120/73 01/29/23 06:20 Pulse Ox 92 L 01/29/23 10:34 FiO2 21 01/27/23 21:18 Intake & Output 01/28/23 01/29/23 01/29/23 18:59 06:59 18:59 Intake Total 590 Output Total 10 25 10 Balance -10 -25 580 Intake: Oral 590 Output: Drainage 10 25 10 Right Abdomen 10 25 10 Other: Voiding Method Toilet Toilet # Voids 2 - Labs CBC & Chem 7: 01/29/23 05:36 01/29/23 12:21 Labs: Abnormal Lab Results - Last 24 Hours (Table) 01/29/23 01/29/23 Range/Units 05:36 05:36 RBC 3.65 L (4.10-5.20) X 10*6/uL Hgb 11.5 L (12.0-15.0) g/dL Hct 34.2 L (37.2-46.3) % Lymphocytes # 0.32 L (0.90-5.00) X 10*3/uL Anion Gap 8.10 L (10.00-18.00) mmol/L Calcium 7.9 L (8.7-10.3) mg/dL Total Bilirubin 3.50 H (0.30-1.20) mg/dL AST 212 H (13-35) U/L ALT 253 H (8-44) U/L Alkaline Phosphatase 136 H (41-126) U/L Total Protein 5.5 L (6.2-8.2) g/dL Albumin 3.1 L (3.8-4.9) g/dL Albumin/Globulin Ratio 1.29 L (1.60-3.17) g/dL
[2023-01-29] MEDS: IBUPROFEN 800 MG TAB PO PRN (17:58)
[2023-01-29] MEDS: PRAVASTATIN SODIUM 20 MG TAB PO SCH (22:11)
[2023-01-29] MEDS: METOPROLOL SUCCINATE (ER) 25 MG TAB.ER.24H PO SCH (22:12)
[2023-01-30] MEDS: SODIUM CHLORIDE 0.9% 1,000 ML IV SCH ×2 (06:01→13:10)
[2023-01-30] MEDS: HEPARIN SODIUM,PORCINE/PF 5,000 UNIT/0.5 ML SYRINGE SQ SCH ×2 (08:16→16:50)
[2023-01-30] MEDS: PANTOPRAZOLE 40 MG/10 ML VIAL IV SCH (08:16)
[2023-01-30] MEDS: traMADol 50 MG TAB PO PRN ×2 (08:16→18:37)
[2023-01-30] MEDS: ISOSORBIDE MONONITRATE ER 30 MG TAB.ER.24H PO SCH (08:16)
[2023-01-30] MEDS: lisinopriL 5 MG TAB PO SCH (08:16)
[2023-01-30] MEDS: metroNIDAZOLE-NS PMX 500 MG in SALINE 1 100ML.BAG IVPB SCH ×2 (08:17→16:50)
[2023-01-30] MEDS: amLODIPine 5 MG TAB PO SCH (08:17)
[2023-01-30] MEDS: ASPIRIN 81 MG PO SCH (08:17)
[2023-01-30 09:48] LABS: Basophils # (A) 0.02 X 10*3/uL (0.00-0.10); Basophils % (A) 0.3 %; Eosinophils # (A) 0.17 X 10*3/uL (0.04-0.35); Eosinophils % (A) 2.4 %; HCT 33.1 % (37.2-46.3); HGB 11.1 g/dL (12.0-15.0); Immature Grans, Automated 0.4 %; Lymphocytes # (A) 0.59 X 10*3/uL (0.90-5.00); Lymphocytes % (A) 8.4 %; MCH 30.5 pg (27.0-32.0); MCHC 33.5 g/dL (32.0-37.0); MCV 90.9 fL (80.0-97.0); Mean Platelet Volume 10.4 fL (9.5-12.2); Monocytes # (A) 0.81 X 10*3/uL (0.20-1.00); Monocytes % (A) 11.6 %; NRBC Per 100 WBC 0 /100 WBCS (0.0-0.0); Neutrophils # (A) 5.37 X 10*3/uL (1.80-7.70); Neutrophils % (A) 76.9 %; Platelet Count 226 X 10*3/uL (140-440); RBC 3.64 X 10*6/uL (4.10-5.20); RDW 12.2 % (11.5-14.5); WBC 6.99 X 10*3/uL (4.50-10.00)
[2023-01-30 10:01] LABS: African American GFR (CKD) 116.1 (60.0-200.0); Albumin 2.9 g/dL (3.8-4.9); Albumin/Globulin Ratio 1.16 (1.60-3.17); Anion Gap 8.6 mmol/L (10.00-18.00); BUN/Creat Ratio 17.6 Ratio (12.00-20.00); Blood Urea Nitrogen 8.8 mg/dL (9.0-27.0); Calcium 7.6 mg/dL (8.7-10.3); Carbon Dioxide 25.4 mmol/L (20.0-27.5); Globulin 2.5 g/dL (1.6-3.3); Non-African American GFR(CKD) 100.1 (60.0-200.0); Potassium 3.6 mmol/L (3.5-5.5); Total Bilirubin 1.7 mg/dL (0.30-1.20); Total Protein 5.4 g/dL (6.2-8.2)
--- NOTE | 2023-01-30 10:57 | P.PN ---
Subjective Progress Note Date: 01/30/23 CHIEF COMPLAINT: Acute cholecystitis HISTORY OF PRESENT ILLNESS: The patient is a 67-year-old female status post open cholecystectomy due to cholecystitis. She reports feeling 200% better today as opposed to yesterday. Patient hospitalization extended due to acute hyperbilirubinemia including cholecystitis requiring IV antibiotics she is tolerating a regular diet. ROS: No reports of nausea and vomiting. No bowel movements. No fevers or chills. No new chest pain. No productive sputum PHYSICAL EXAM: VITAL SIGNS: Reviewed CONSTITUTIONAL: Well developed and in no acute distress. EYES: Conjuctivae without sclera icterus. Extraocular movements grossly intact. HEAD, EARS, NOSE, THROAT: Moist buccal mucosa. Head is atraumatic, normocephalic. Hears conversational speech. No nasal drainage. RESPIRATORY: Non-labored respirations and equal bilateral excursions. CARDIOVASCULAR: Palpable 2+ radial pulses. ABDOMEN: CITLALI serosanguineous No bile. Dressing intact. No peritonitis MUSCULOSKELETAL: No gross deformity of the lower extremities noted. No clubbing. No cyanosis. SKIN: Good skin turgor. Well perfused. NEUROLOGIC: Cranial nerves II through XII grossly intact. No focal or lat eralizing signs. PSYCH: Appropriate affect. Alert and oriented to person, place and time. CLINICAL LABS: Reviewed. Total bilirubin elevated 4.2 to 3.5, now 1.17. WBC normal. LFTs trending down ASSESSMENT: 1. Acute cholecystitis 2. Hyperbilirubinemia PLAN: 1. Continue antibiotics 2. Liver enzymes moderately improved. 3. Anticipated discharge with CITLALI drain pending normal total bilirubin 4. Disposition 24 hours 5. Diet as tolerated Care plan reviewed with questions answered with patient Objective - Vital Signs Vital signs: Vital Signs Temp 98.5 F 01/30/23 08:00 Pulse 80 01/30/23 08:00 Resp 18 01/30/23 08:00 BP 160/76 01/30/23 08:00 Pulse Ox 93 L 01/30/23 08:00 FiO2 21 01/27/23 21:18 Intake & Output 01/29/23 01/30/23 01/30/23 18:59 06:59 18:59 Intake Total 930 Output Total 10 20 Balance 920 -20 Intake: Oral 930 Output: Drainage 10 20 Right Abdomen 10 20 Stool 0 Other: Voiding Method Toilet # Voids 2 2 - Labs CBC & Chem 7: 01/30/23 06:44 01/30/23 06:44 Labs: Abnormal Lab Results - Last 24 Hours (Table) 01/29/23 01/30/23 01/30/23 Range/Units 12:21 06:44 06:44 RBC 3.64 L (4.10-5.20) X 10*6/uL Hgb 11.1 L (12.0-15.0) g/dL Hct 33.1 L (37.2-46.3) % Lymphocytes # 0.59 L (0.90-5.00) X 10*3/uL Anion Gap 8.60 L (10.00-18.00) mmol/L BUN 8.8 L (9.0-27.0) mg/dL Creatinine 0.5 L (0.6-1.5) mg/dL Glucose 114 H (70-110) mg/dL Calcium 7.3 L 7.6 L (8.4-10.2) mg/dL Total Bilirubin 3.4 H 1.70 H (0.2-1.3) mg/dL AST 203 H 199 H (14-36) U/L ALT 242 H 254 H (4-34) U/L Alkaline Phosphatase 140 H 153 H (38-126) U/L Total Protein 5.5 L 5.4 L (6.3-8.2) g/dL Albumin 2.7 L 2.9 L (3.5-5.0) g/dL Albumin/Globulin Ratio 1.16 L (1.60-3.17) g/dL
--- NOTE | 2023-01-30 12:09 | P.PN ---
Subjective Progress Note Date: 01/30/23 Hospital Course: 67-year-old female with a past medical history of coronary artery disease status post reported 6 vessel CABG 17 years ago, hypertension, and dyslipidemia who presented to the ER with complaints of chest pain. In the emergency department she underwent an extensive evaluation. Initial EKG showed no significant ST-T wave changes. Chest x-ray was unremarkable. Laboratory analysis was remarkable for a leukocytosis of 19.9, d-dimer 0.34 and troponin of less than 0.012. She was given an aspirin, nitroglycerin, and a heparin drip was started. She was admitted to cardiac observation. She was seen by cardiology the next morning and a stress echo was ordered. Stress echo showed possible mild inferior basilar/inferior septal hypokinesis. Echocardiogram showed LVEF 50-55%. Per cardiology, patient symptoms less likely to be cardiac, possibly GI. Gallbladder US: Hepatic Steatosis, non distended GB with thickened wall, mutiple shadowing gallstones present. CT abd and Pelvis: No mesenteric ischemia, mild gallbladder wall thickening with hyperemic mucosa, GB nondistended possible chronic cholecystitis. HIDA scan showed findings compatible with acute cholecystitis. Patient was started on Zosyn. She is now status post cholecystectomy. Subjective: Patient seen and examined at bedside. Currently having minimal right upper quadrant pain, but denies any other nausea, vomiting, urinary or bowel complaints. She is passing gas, no bowel movements. Denies any shortness of breath. Pertinent positives and negatives as discussed above, a complete review of systems was performed and all other systems are negative. Vitals Signs Reviewed. General: nontoxic, no distress, appears at stated age Derm: warm, dry Head: atraumatic, normocephalic, symmetric Eyes: EOMI, no lid lag, anicteric sclera Mouth: no lip lesion, mucus membranes moist Cardiovascular: S1S2 reg, no murmur, positive posterior tibial pulse bilateral, Lungs: CTA bilateral, no rhonchi, no rales , no accessory muscle use Abdominal: soft, mild tenderness to palpation in right upper quadrant, no guarding, no appreciable organomegaly Ext: no gross muscle atrophy, no edema, no contractures Neuro: CN II-XI grossly intact, no focal neuro deficits Psych: Alert, oriented, appropriate affect Data Reviewed Today: Pertinent Labs: WBC 6.99, hemoglobin 11.1, creatinine 0.5, total bilirubin 1.7, AST 199, ALT 254, ALP 153 Assessment and Plan: Acute cholecystitis, status post cholecystectomy Sepsis, resolved Transaminitis Chest pain, non cardiac History of coronary artery disease status post coronary artery bypass grafting Hypertension Dyslipidemia -On IV Flagyl 500 mg every 8 hours, and ceftriaxone 2 g IV every 24 hours -Being controlled with oral Tylenol, oral tramadol, oral ibuprofen, IV Dilaudid as needed -Diet has been advanced to low-fat -Liver function is improving -Gen. surgery following, note reviewed, likely discharge tomorrow -Cardiology signed off -Continue amlodipine 5 mg, lisinopril 5 mg, metoprolol 25 mg, Imdur 30 mg -On aspirin 81 mg and pravastatin 20 mg DVT ppx: Subcu heparin Code status: Full code Anticipated discharge place: Home Anticipated discharge time: Likely tomorrow Objective - Vital Signs Vital signs: Vital Signs Temp 98.5 F 01/30/23 08:00 Pulse 80 01/30/23 08:00 Resp 18 01/30/23 08:00 BP 160/76 01/30/23 08:00 Pulse Ox 93 L 01/30/23 08:00 FiO2 21 01/27/23 21:18 Intake & Output 01/29/23 01/30/23 01/30/23 18:59 06:59 18:59 Intake Total 930 Output Total 10 20 Balance 920 -20 Intake: Oral 930 Output: Drainage 10 20 Right Abdomen 10 20 Stool 0 Other: Voiding Method Toilet # Voids 2 2 - Labs CBC & Chem 7: 01/30/23 06:44 01/30/23 06:44 Labs: Abnormal Lab Results - Last 24 Hours (Table) 01/29/23 01/30/23 01/30/23 Range/Units 12:21 06:44 06:44 RBC 3.64 L (4.10-5.20) X 10*6/uL Hgb 11.1 L (12.0-15.0) g/dL Hct 33.1 L (37.2-46.3) % Lymphocytes # 0.59 L (0.90-5.00) X 10*3/uL Anion Gap 8.60 L (10.00-18.00) mmol/L BUN 8.8 L (9.0-27.0) mg/dL Creatinine 0.5 L (0.6-1.5) mg/dL Glucose 114 H (70-110) mg/dL Calcium 7.3 L 7.6 L (8.4-10.2) mg/dL Total Bilirubin 3.4 H 1.70 H (0.2-1.3) mg/dL AST 203 H 199 H (14-36) U/L ALT 242 H 254 H (4-34) U/L Alkaline Phosphatase 140 H 153 H (38-126) U/L Total Protein 5.5 L 5.4 L (6.3-8.2) g/dL Albumin 2.7 L 2.9 L (3.5-5.0) g/dL Albumin/Globulin Ratio 1.16 L (1.60-3.17) g/dL
[2023-01-30] MEDS: IBUPROFEN 800 MG TAB PO PRN ×2 (13:10→21:48)
[2023-01-30] MEDS: METOPROLOL SUCCINATE (ER) 25 MG TAB.ER.24H PO SCH (21:44)
[2023-01-30] MEDS: PRAVASTATIN SODIUM 20 MG TAB PO SCH (21:44)
[2023-01-31] MEDS: metroNIDAZOLE-NS PMX 500 MG in SALINE 1 100ML.BAG IVPB SCH ×4 (00:29→23:31)
[2023-01-31] MEDS: HEPARIN SODIUM,PORCINE/PF 5,000 UNIT/0.5 ML SYRINGE SQ SCH ×4 (00:30→19:59)
[2023-01-31] MEDS: SODIUM CHLORIDE 0.9% 1,000 ML IV SCH ×3 (00:30→20:02)
[2023-01-31] MEDS: traMADol 50 MG TAB PO PRN ×2 (00:34→23:46)
[2023-01-31] MEDS: PANTOPRAZOLE 40 MG/10 ML VIAL IV SCH (08:03)
[2023-01-31] MEDS: ASPIRIN 81 MG PO SCH (08:04)
[2023-01-31] MEDS: lisinopriL 5 MG TAB PO SCH (08:04)
[2023-01-31] MEDS: ISOSORBIDE MONONITRATE ER 30 MG TAB.ER.24H PO SCH (08:04)
[2023-01-31] MEDS: amLODIPine 5 MG TAB PO SCH (08:04)
[2023-01-31] MEDS: IBUPROFEN 800 MG TAB PO PRN (09:54)
--- NOTE | 2023-01-31 12:15 | P.PN ---
Subjective Progress Note Date: 01/31/23 Hospital Course: 67-year-old female with a past medical history of coronary artery disease status post reported 6 vessel CABG 17 years ago, hypertension, and dyslipidemia who presented to the ER with complaints of chest pain. In the emergency department she underwent an extensive evaluation. Initial EKG showed no significant ST-T wave changes. Chest x-ray was unremarkable. Laboratory analysis was remarkable for a leukocytosis of 19.9, d-dimer 0.34 and troponin of less than 0.012. She was given an aspirin, nitroglycerin, and a heparin drip was started. She was admitted to cardiac observation. She was seen by cardiology the next morning and a stress echo was ordered. Stress echo showed possible mild inferior basilar/inferior septal hypokinesis. Echocardiogram showed LVEF 50-55%. Per cardiology, patient symptoms less likely to be cardiac, possibly GI. Gallbladder US: Hepatic Steatosis, non distended GB with thickened wall, mutiple shadowing gallstones present. CT abd and Pelvis: No mesenteric ischemia, mild gallbladder wall thickening with hyperemic mucosa, GB nondistended possible chronic cholecystitis. HIDA scan showed findings compatible with acute cholecystitis. Patient was started on Zosyn. She is now status post cholecystectomy. Subjective: Patient seen and examined at bedside. Abdominal pain has subsided, denies any other nausea, vomiting, urinary complaints. She is passing gas, no bowel movements. Denies any shortness of breath. Pertinent positives and negatives as discussed above, a complete review of systems was performed and all other systems are negative. Vitals Signs Reviewed. General: nontoxic, no distress, appears at stated age Derm: warm, dry Head: atraumatic, normocephalic, symmetric Eyes: EOMI, no lid lag, anicteric sclera Mouth: no lip lesion, mucus membranes moist Cardiovascular: S1S2 reg, no murmur, positive posterior tibial pulse bilateral, Lungs: CTA bilateral, no rhonchi, no rales , no accessory muscle use Abdominal: soft, mild tenderness to palpation in right upper quadrant, no guarding, no appreciable organomegaly Ext: no gross muscle atrophy, no edema, no contractures Neuro: CN II-XI grossly intact, no focal neuro deficits Psych: Alert, oriented, appropriate affect Data Reviewed Today: Pertinent Labs: CBC and CMP collected, still pending, will be reviewed when available Assessment and Plan: Acute cholecystitis, status post cholecystectomy Sepsis, resolved Transaminitis, improving Chest pain, non cardiac History of coronary artery disease status post coronary artery bypass grafting Hypertension Dyslipidemia -On IV Flagyl 500 mg every 8 hours, and ceftriaxone 2 g IV every 24 hours -Being controlled with oral Tylenol, oral tramadol, oral ibuprofen, IV Dilaudid as needed -On low-fat diet -Liver function is improving -Gen. surgery following, possible discharge today or tomorrow -Cardiology signed off -Continue amlodipine 5 mg, lisinopril 5 mg, metoprolol 25 mg, Imdur 30 mg -On aspirin 81 mg and pravastatin 20 mg DVT ppx: Subcu heparin Code status: Full code Anticipated discharge place: Home Anticipated discharge time: Likely later today or tomorrow depending on final surgery recommendations Objective - Vital Signs Vital signs: Vital Signs Temp 98 F 01/31/23 07:11 Pulse 74 01/31/23 07:11 Resp 18 01/31/23 07:11 BP 157/81 01/31/23 07:11 Pulse Ox 95 01/31/23 07:53 FiO2 21 01/27/23 21:18 Intake & Output 01/30/23 01/31/23 01/31/23 18:59 06:59 18:59 Output Total 60 20 Balance -60 -20 Output: Drainage 60 20 Right Abdomen 60 20 Other: # Voids 1 2 - Labs CBC & Chem 7: 01/30/23 06:44 01/30/23 06:44
[2023-01-31 12:25] LABS: ALT 215 U/L (4-34); AST 130 U/L (14-36); African American GFR (CKD) >90 (>60 ml/min/1.73 sqM); Alkaline Phosphatase 184 U/L (38-126); Anion Gap 10 mmol/L; Basophils % (A) 0 %; Blood Urea Nitrogen 8 mg/dL (7-17); Calcium 7.4 mg/dL (8.4-10.2); Carbon Dioxide 26 mmol/L (22-30); Chloride 102 mmol/L (98-107); Eosinophils # (A) 0.1 k/uL (0-0.7); Eosinophils % (A) 2 %; Globulin 3.1 g/dL; Glucose 88 mg/dL (74-99); HCT 36.5 % (34.0-46.0); HGB 12.4 gm/dL (11.4-16.0); Lymphocytes % (A) 13 %; MCH 30.9 pg (25.0-35.0); Mean Platelet Volume 8.7; Monocytes # (A) 0.6 k/uL (0-1.0); Monocytes % (A) 8 %; Neutrophils % (A) 75 %; Non-African American GFR(CKD) >90 (>60 ml/min/1.73 sqM); Platelet Count 295 k/uL (150-450); Potassium 3.3 mmol/L (3.5-5.1); RBC 4.02 m/uL (3.80-5.40); RDW 12.8 % (11.5-15.5); Sodium 138 mmol/L (137-145); Total Bilirubin 1.1 mg/dL (0.2-1.3); Total Protein 6.1 g/dL (6.3-8.2); WBC 7.9 k/uL (3.8-10.6)
[2023-01-31] MEDS ORDERED: POTASSIUM CHLORIDE ER 20 MEQ TAB.ER PO STA (12:48)
--- NOTE | 2023-01-31 15:38 | P.PN ---
Subjective Progress Note Date: 01/31/23 CHIEF COMPLAINT: Acute cholecystitis HISTORY OF PRESENT ILLNESS: The patient is a 67-year-old female status post open cholecystectomy due to cholecystitis. She reports feeling well. She is tolerating diet. She is eager to go home. ROS: No reports of nausea and vomiting. No bowel movements. No fevers or chills. No new chest pain. No productive sputum PHYSICAL EXAM: VITAL SIGNS: Reviewed CONSTITUTIONAL: Well developed and in no acute distress. EYES: Conjuctivae without sclera icterus. Extraocular movements grossly intact. HEAD, EARS, NOSE, THROAT: Moist buccal mucosa. Head is atraumatic, normocephalic. Hears conversational speech. No nasal drainage. RESPIRATORY: Non-labored respirations and equal bilateral excursions. CARDIOVASCULAR: Palpable 2+ radial pulses. ABDOMEN: CITLALI serosanguineous No bile. Dressing intact. No peritonitis. Abdominal binder present MUSCULOSKELETAL: No gross deformity of the lower extremities noted. No clubbing. No cyanosis. SKIN: Good skin turgor. Well perfused. NEUROLOGIC: Cranial nerves II through XII grossly intact. No focal or lateralizing signs. PSYCH: Appropriate affect. Alert and oriented to person, place and time. CLINICAL LABS: Reviewed. Total bilirubin now normal, 1.7-1.1. WBC normal. ASSESSMENT: 1. Acute cholecystitis 2. Hyperbilirubinemia 3. Elevated liver enzymes PLAN: 1. LFTs trending downward with normal total bilirubin. Stable for discharge. 2. Discharge home with drain 3. Postoperative wound care instructions reviewed. 4. Follow-up with index surgeon 1 week Objective - Vital Signs Vital signs: Vital Signs Temp 98.9 F 01/31/23 14:00 Pulse 78 01/31/23 14:00 Resp 18 01/31/23 14:00 BP 127/66 01/31/23 14:00 Pulse Ox 93 L 01/31/23 14:00 FiO2 21 01/27/23 21:18 Intake & Output 01/30/23 01/31/23 01/31/23 18:59 06:59 18:59 Intake Total 90 Output Total 60 20 Balance -60 -20 90 Intake: Oral 90 Output: Drainage 60 20 Right Abdomen 60 20 Other: # Voids 1 2 1 - Labs CBC & Chem 7: 01/31/23 10:55 01/31/23 10:55 Labs: Abnormal Lab Results - Last 24 Hours (Table) 01/31/23 Range/Units 10:55 Potassium 3.3 L (3.5-5.1) mmol/L Creatinine 0.44 L (0.52-1.04) mg/dL Calcium 7.4 L (8.4-10.2) mg/dL AST 130 H (14-36) U/L ALT 215 H (4-34) U/L Alkaline Phosphatase 184 H (38-126) U/L Total Protein 6.1 L (6.3-8.2) g/dL Albumin 3.0 L (3.5-5.0) g/dL
[2023-01-31] MEDS: METOPROLOL SUCCINATE (ER) 25 MG TAB.ER.24H PO SCH (19:58)
[2023-01-31] MEDS: PRAVASTATIN SODIUM 20 MG TAB PO SCH (19:59)
[2023-02-01 07:45] VITALS: RESP 16
[2023-02-01 09:07] LABS: African American GFR (CKD) 116.1 (60.0-200.0); Anion Gap 12.3 mmol/L (10.00-18.00); Calcium 8.2 mg/dL (8.7-10.3); Carbon Dioxide 22.7 mmol/L (20.0-27.5); Non-African American GFR(CKD) 100.1 (60.0-200.0); Potassium 3.3 mmol/L (3.5-5.5)
[2023-02-01] MEDS: metroNIDAZOLE-NS PMX 500 MG in SALINE 1 100ML.BAG IVPB SCH (09:07)
[2023-02-01] MEDS: ISOSORBIDE MONONITRATE ER 30 MG TAB.ER.24H PO SCH (09:08)
[2023-02-01] MEDS: HEPARIN SODIUM,PORCINE/PF 5,000 UNIT/0.5 ML SYRINGE SQ SCH (09:08)
[2023-02-01] MEDS: SODIUM CHLORIDE 0.9% 1,000 ML IV SCH (09:08)
[2023-02-01] MEDS: ASPIRIN 81 MG PO SCH (09:08)
[2023-02-01] MEDS: lisinopriL 5 MG TAB PO SCH (09:08)
[2023-02-01] MEDS: PANTOPRAZOLE 40 MG/10 ML VIAL IV SCH (09:08)
[2023-02-01] MEDS: amLODIPine 5 MG TAB PO SCH (09:08)
[2023-02-01 10:13] LABS: Potassium 3.1 mmol/L (3.5-5.1)
[2023-02-01 10:14] LABS: ALT 172 U/L (4-34); AST 80 U/L (14-36); African American GFR (CKD) >90 (>60 ml/min/1.73 sqM); Albumin 3.2 g/dL (3.5-5.0); Alkaline Phosphatase 177 U/L (38-126); Anion Gap 8 mmol/L; Blood Urea Nitrogen 8 mg/dL (7-17); Carbon Dioxide 24 mmol/L (22-30); Chloride 104 mmol/L (98-107); Globulin 3.1 g/dL; Glucose 142 mg/dL (74-99); Non-African American GFR(CKD) >90 (>60 ml/min/1.73 sqM); Sodium 136 mmol/L (137-145); Total Bilirubin 1.1 mg/dL (0.2-1.3); Total Protein 6.3 g/dL (6.3-8.2)
--- NOTE | 2023-02-01 11:42 | P.PN ---
Subjective Progress Note Date: 02/01/23 CHIEF COMPLAINT: Acute cholecystitis HISTORY OF PRESENT ILLNESS: Patient is postop day #2 status post attempted laparoscopic cholecystectomy with conversion to open cholecystectomy and intraoperative cholangiogram. Patient reports that she is feeling better. She has some minimal pain right upper quadrant. She denies any nausea or vomiting. She is having bowel movements. Afebrile. Her total bilirubin normalized yesterday at 1.1 LFTs continued to trend downwards. CITLALI drain with 34 mL serosanguineous output. Patient's discharge held yesterday due to hypokalemia. Potassium 3.1 PHYSICAL EXAM: VITAL SIGNS: Reviewed GENERAL: Well-developed in no acute distress. HEENT: No sclera icterus. Extraocular movements grossly intact. Moist buccal mucosa. Head is atraumatic, normocephalic. Hears conversational speech. No nasal drainage. NECK: Supple without lymphadenopathy. CHEST: Non-labored respirations and equal bilateral excursions. CARDIOVASCULAR: Palpable 2+ radial pulses. ABDOMEN: Soft. Nondistended. mild Right upper quadrant tenderness. Incision dressing clean dry and intact. CITLALI drain serosanguineous output MUSCULOSKELETAL: No clubbing or cyanosis. NEUROLOGIC: No focal or lateralizing signs. Cranial nerves II through XII grossly intact. PSYCH: Appropriate affect. Alert and oriented to person, place and time. SKIN: Well perfused. Good skin turgor. ASSESSMENT: 1. Acute cholecystitis status post open cholecystectomy 2. Elevated liver enzymes and total bilirubin. Total bili has normalized. LFTs trending towards PLAN: -Patient can be discharged surgical standpoint when medically cleared -Discharge with CITLALI drain -Follow up in office with Dr. Carrasco in 1 week Physician Switchbox Assembler note has been reviewed by physician. Signing provider agrees with the documented findings, assessment, and plan of care. I have personally seen and examined the patient, reviewed the SIDING MECHANIC /PAs history, exam and MDM and agree with the assessment and plan as written. Based on total visit time, I have performed more than 50% of the visit. As above: Patient doing well. Minimal pain. CITLALI is serosanguineous. Labs are improving. May discharge. Follow-up this week with drain in place. Objective - Vital Signs Vital signs: Vital Signs Temp 98.2 F 02/01/23 07:44 Pulse 74 02/01/23 07:44 Resp 16 02/01/23 07:44 BP 178/79 02/01/23 07:44 Pulse Ox 95 02/01/23 07:48 FiO2 21 01/27/23 21:18 Intake & Output 01/31/23 02/01/23 02/01/23 18:59 06:59 18:59 Intake Total 210 Output Total 20 34 Balance 190 -34 Intake: Oral 210 Output: Drainage 20 34 Right Abdomen 20 34 Other: # Voids 1 # Bowel Movements 1 - Labs CBC & Chem 7: 01/31/23 10:55 02/01/23 09:35 Labs: Abnormal Lab Results - Last 24 Hours (Table) 01/31/23 02/01/23 02/01/23 Range/Units 10:55 02:44 09:35 Sodium 136 L (137-145) mmol/L Potassium 3.3 L 3.3 L 3.1 L (3.5-5.1) mmol/L BUN 8.0 L (9.0-27.0) mg/dL Creatinine 0.44 L 0.5 L 0.42 L (0.52-1.04) mg/dL Glucose 142 H (74-99) mg/dL Calcium 7.4 L 8.2 L 8.0 L (8.4-10.2) mg/dL AST 130 H 80 H (14-36) U/L ALT 215 H 172 H (4-34) U/L Alkaline Phosphatase 184 H 177 H (38-126) U/L Total Protein 6.1 L (6.3-8.2) g/dL Albumin 3.0 L 3.2 L (3.5-5.0) g/dL
[2023-02-01] MEDS ORDERED: POTASSIUM BICARBONATE/CIT AC 20 MEQ TABLET.EFF PO ONE (14:33)
--- NOTE | 2023-02-01 14:43 | P.DS ---
Providers Date of admission: 01/27/23 15:32 Expected date of discharge: 02/01/23 Attending physician: Efrain Basurto MD Consults: 01/27/23 09:48 Consult Physician Routine Consulting Provider: Jose M Carrasco Reason/Comments: cholecystitis Do you want consulting provider notified?: Yes Primary care physician: [facility] Course: Discharge Diagnosis: Acute cholecystitis, status post cholecystectomy 01/27/23. Sepsis, Secondary to above, resolved Transaminitis, improving Hyperbilirubinemia, resolved Hypokalemia, replaced Chest pain, non cardiac. acute coronary event ruled out. History of coronary artery disease status post coronary artery bypass grafting Hypertension Dyslipidemia Hospital Course: Patient is a very pleasant 67-year-old female with a past medical history of coronary artery disease status post reported 6 vessel CABG 17 years ago, hypertension, and dyslipidemia who presented to the ER with complaints of chest pain. In the emergency department she underwent an extensive evaluation. Initial EKG showed no significant ST-T wave changes. Chest x-ray was unremarkable. Laboratory analysis was remarkable for a leukocytosis of 19.9, d- dimer 0.34 and troponin of less than 0.012. She was given an aspirin, nitroglycerin, and a heparin drip was started. She was admitted to cardiac observation. She was seen by cardiology the next morning and a stress echo was ordered. Stress echo showed possible mild inferior basilar/inferior septal hypokinesis. Echocardiogram showed LVEF 50-55%. Per cardiology, patient symptoms less likely to be cardiac, possibly GI. Gallbladder US: Hepatic Steatosis, non distended GB with thickened wall, mutiple shadowing gallstones present. CT abd and Pelvis: No mesenteric ischemia, mild gallbladder wall thickening with hyperemic mucosa, GB nondistended possible chronic cholecystitis. HIDA scan showed findings compatible with acute cholecystitis. Patient was started on Zosyn and underwent cholecystectomy on 01/27/23. liver enzymes and bilirubin monitored closely as they were elevatedand has successfully been trending down. General surgery clearing patient from surgical standpoint for discharge recommending patient follow-up in our office in 1 week. Medically, patient is stable for discharge at this time. Upon discharge patient has had full resolution of hyperbilirubinemia with total bilirubin of 1.1 and significant improvement of liver enzymes with AST of 80, ALT of 172, and alkaline phosphatase of 177which has shown significant improvement from initial elevation of AST of 328, ALT of 275, and alkaline phosphatase of 133 with total bili of 4.2.discharge instructions discussed with patient at bedside. Patient being discharged home with CITLALI drain in place. Patient to follow up outpatient with PCP in 1-2 days, general surgeon in 3 days, and cardiology in 1-2 weeks. Physical exam: General: non toxic, no distress, appears at stated age Derm: warm, dry Head: atraumatic, normocephalic, symmetric Eyes: EOMI, no lid lag, anicteric sclera Mouth: no lip lesion, mucus membranes moist Cardiovascular: S1S2 reg, no murmur, positive posterior tibial pulse bilateral, Lungs: CTA bilateral, no rhonchi, no rales , no accessory muscle use Abdominal: soft, nontender to palpation, no guarding, no appreciable organomegaly Ext: no gross muscle atrophy, no edema, no contractures Neuro: CN II-XI grossly intact, no focal neuro deficits Psych: Alert, oriented, appropriate affect A total of 35 minutes of time were spent preparing this complex discharge summary. Pt was discharged on 02/01/23 at 2:35 PM Patient was seen independently by Nurse Practitioner. This document was prepared using [employer] dictation software. Please allow for errors in quality control lab technician while rare they do occur. Patient Condition at Discharge: Stable Plan - Discharge Summary Discharge Rx Participant: No New Discharge Prescriptions: New Acetaminophen Tab [Tylenol Tab] 1,000 mg PO Q6HR PRN #30 tablet PRN Reason: Pain traMADol HCl [Ultram] 50 mg PO Q6HR PRN 3 Days #12 tab PRN Reason: Pain Continue lisinopriL [Zestril] 5 mg PO DAILY Metoprolol Succinate [Metoprolol Succinate ER] 25 mg PO HS Aspirin EC [Ecotrin Low Dose] 81 mg PO DAILY Pravastatin Sodium [Pravachol] 20 mg PO DAILY amLODIPine [Norvasc] 5 mg PO DAILY Discharge Medication List Aspirin EC [Ecotrin Low Dose] 81 mg PO DAILY 01/25/23 [History] Metoprolol Succinate [Metoprolol Succinate ER] 25 mg PO HS 01/25/23 [History] Pravastatin Sodium [Pravachol] 20 mg PO DAILY 01/25/23 [History] amLODIPine [Norvasc] 5 mg PO DAILY 01/25/23 [History] lisinopriL [Zestril] 5 mg PO DAILY 01/25/23 [History] Acetaminophen Tab [Tylenol Tab] 1,000 mg PO Q6HR PRN #30 tablet 01/31/23 [Rx] traMADol HCl [Ultram] 50 mg PO Q6HR PRN 3 Days #12 tab 02/01/23 [Rx] Follow up Appointment(s)/Referral(s): Jose M Carrasco MD [Medical Doctor] - 02/04/23 8:15 am Gardenia Silverio MD [STAFF PHYSICIAN] - 02/16/23 3:15 pm (appointment made at the [facility] ) Farhan Wyatt MD [Primary Care Provider] - 1-2 days Ambulatory/Diagnostic Orders: Basic Metabolic Panel [LAB.AMB] Time Frame: 3 Days, Location: None Selected Magnesium [LAB.AMB] Location: None Selected Patient Instructions/Handouts: Armond-Brewer Drain Care (DC), Open Cholecystectomy (DC) Activity/Diet/Wound Care/Special Instructions: Take measurements of drainage output daily. Keep dressing dry. Sponge bath only. Notify surgeon's office if CITLALI drain become green. Discharge Disposition: HOME SELF-CARE
[2023-02-01 14:51] VITALS: BP 148/82; PULSE 86; TEMP 98.5
== END 2023-02-01 15:40 | disposition home or self-care (01) | DRG 854 ==
LOC: EC 15:20 → 6NMEDSUR 19:42 → INTOOBSV 19:42 → 6NMEDSUR 19:58 → OBSVTOIN 01-27 15:32
PROVIDERS: ADMIT Internal Medicine; ATTEND Internal Medicine
PROC: 0WJG4ZZ Inspection of Peritoneal Cavity, Percutaneous Endoscopic Approach (ICD-10-PCS; 2023-01-27)
PROC: BF131ZZ Fluoroscopy of Gallbladder and Bile Ducts using Low Osmolar Contrast (ICD-10-PCS; 2023-01-27)
PROC: 0FT40ZZ Resection of Gallbladder, Open Approach (ICD-10-PCS; principal; 2023-01-27 14:40)
DX: A41.9 Sepsis, unspecified organism (principal); I25.110 Atherosclerotic heart disease of native coronary artery with unstable angina pectoris; K80.13 Calculus of gallbladder with acute and chronic cholecystitis with obstruction; K76.0 Fatty (change of) liver, not elsewhere classified; I10 Essential (primary) hypertension; I08.1 Rheumatic disorders of both mitral and tricuspid valves; Z53.31 Laparoscopic surgical procedure converted to open procedure; E78.5 Hyperlipidemia, unspecified; E87.6 Hypokalemia; K21.9 Gastro-esophageal reflux disease without esophagitis; E80.6 Other disorders of bilirubin metabolism; Z87.891 Personal history of nicotine dependence; Z88.5 Allergy status to narcotic agent; Z79.899 Other long term (current) drug therapy; Z79.82 Long term (current) use of aspirin; Z95.1 Presence of aortocoronary bypass graft
CPT/HCPCS: 36415; 71045; 71046; 74177; 76705; 78226; 80048; 80053; 80061; 83605; 83690; 83735; 83880; 84484; 85025; 85027; 85379; 85610; 85730; 88304; 93005; 93306; 93351; 94760; 96365; 96366; 96375; 99291

== ENCOUNTER → 2023-02-08 | Outpatient (CLI) | payer MEDICARE ==
[2023-02-08 15:29] LABS: African American GFR (CKD) 105.3 (60.0-200.0); Albumin 4.2 g/dL (3.8-4.9); Albumin/Globulin Ratio 1.32 (1.60-3.17); BUN/Creat Ratio 22.02 Ratio (12.00-20.00); Blood Urea Nitrogen 14.8 mg/dL (9.0-27.0); Calcium 9.3 mg/dL (8.7-10.3); Carbon Dioxide 25.6 mmol/L (20.0-27.5); Globulin 3.2 g/dL (1.6-3.3); Non-African American GFR(CKD) 90.9 (60.0-200.0); Potassium 4.2 mmol/L (3.5-5.5); Total Bilirubin 0.7 mg/dL (0.30-1.20); Total Protein 7.3 g/dL (6.2-8.2)
== END | disposition home or self-care (01) ==
LOC: LABWHC1 08:03
PROVIDERS: ATTEND Surgery
DX: K81.1 Chronic cholecystitis (principal)
CPT/HCPCS: 36415; 80053